=== PATIENT | female | born 1945 | race Caucasian/White ===

== ENCOUNTER 2016-12-02 09:25 | Emergency (ER) | payer OTHER ==
[~2016-12-02] VITALS: Ht 154.9 cm; Wt 51.2 kg
[~2016-12-02 09:25] MED LIST: AMLO10 PO; LEVO50TA4 PO; LISI10TA3 PO
[2016-12-02 09:40] VITALS: BP 143/78; PULSE 85; RESP 16; TEMP 98.1; O2SAT 98
[2016-12-02] MEDS ORDERED: LISI10TA3 PO (09:54)
[2016-12-02] MEDS ORDERED: CURCPOW (09:54)
[2016-12-02] MEDS ORDERED: FLUT1SPR5 EACH NARE (09:54)
[2016-12-02] MEDS ORDERED: MULT1TAB84 PO (09:54)
[2016-12-02] MEDS ORDERED: LEVO50TA4 PO (09:54)
[2016-12-02] MEDS ORDERED: AMLO10 PO (09:54)
[2016-12-02] MEDS ORDERED: BOSW5TAB PO (09:54)
[2016-12-02 10:06] LABS: AUTOMATED NEUTROPHIL # 3.6 TH/MM3 (1.8-7.7); BASOPHIL % 0.7 % (0.0-2.0); EOSINOPHIL % 0.3 % (0.0-4.0); HEMATOCRIT 42.8 % (35.0-46.0); HEMO FLAGS DIFF FINAL; LYMPH % 21.4 % (9.0-44.0); LYMPHOCYTE # 1.2 TH/MM3 (1.0-4.8); MEAN CELL VOLUME 98.7 FL (80.0-100.0); MEAN CORPUSCULAR HEMOGLOBIN 33.5 PG (27.0-34.0); MEAN CORPUSCULAR HGB CONC 33.9 % (32.0-36.0); MONO % 11.1 % (0.0-8.0); NEUT % 66.5 % (16.0-70.0); PLATELET COUNT 190 TH/MM3 (150-450); RED BLOOD COUNT 4.34 MIL/MM3 (4.00-5.30); RED CELL DISTRIBUTION WIDTH 12.1 % (11.6-17.2); WHITE BLOOD COUNT 5.4 TH/MM3 (4.0-11.0)
[2016-12-02 10:13] LABS: CHLORIDE 100 MEQ/L (98-107); POTASSIUM 4.4 MEQ/L (3.5-5.1); SODIUM (NA) 137 MEQ/L (136-145)
[2016-12-02] MEDS ORDERED: ONDANSETRON ODT 4 MG TAB PO ONE (10:15)
[2016-12-02 10:16] LABS: ANION GAP 12 MEQ/L (5-15); BICARBONATE 25.1 MEQ/L (21.0-32.0)
[2016-12-02 10:17] LABS: BLOOD UREA NITROGEN 14 MG/DL (7-18)
[2016-12-02 10:19] LABS: ALT (GPT) 116 U/L (10-53)
[2016-12-02 10:20] LABS: AST (GOT) 161 U/L (15-37); GLOMERULAR FILTRATION RATE 69 ML/MIN (>89)
[2016-12-02 10:22] LABS: ALKALINE PHOSPHATASE 97 U/L (45-117)
--- NOTE | 2016-12-02 10:42 | PD ---
HPI Chief Complaint: Dizziness Time Seen by Provider: 09:46 Travel History International Travel<30 days: No Contact w/Intl Traveler<30days: No Traveled to known affect area: No History of Present Illness HPI Is a 71-year-old woman presents to the emergency department complaining of feeling dizzy nauseous over the past several days. She's been having belly problems since about August. She's had abdominal distention and bloating and belching. She is followed with Dr. spears or GI. The past couple days had more dizziness and nausea. She also had dark stools for the past 2 days. She had vomiting about a week ago, but has resolved now. No history of abdominal surgeries. No other complaints. History Past Medical History Narrative Medical Hypertension Hypothyroidism Arthritis Hepatitis C Tetanus Vaccination: Unknown Menopausal: Yes Social History Alcohol Use: Yes (WINE DAILY) Tobacco Use: No Allergies-Medications (Allergen,Severity, Reaction): Coded Allergies: Macrobid (Verified Allergy, Intermediate, UPSET STOMACH, 12/02/16) Penicillin (Verified Allergy, Intermediate, HIVES, 12/02/16) Reported Meds & Prescriptions Reported Meds & Active Scripts Active Reported Osteo Bi-Flex One A Day (Hnnineudu-Ilwjotspqeq-Llkxsbd) 1 Tab 1 Tab PO DAILY Norvasc (Amlodipine Besylate) 10 Mg Tab 10 Mg PO DAILY Multivitamin Adults (Multiple Vitamins W/ Minerals) 1 Tab 1 Tab PO DAILY Lisinopril 10 Mg Tab 10 Mg PO DAILY Levothyroxine (Levothyroxine Sodium) 50 Mcg Tab 50 Mcg PO DAILY Flonase Allergy Relief Nasal [place] (Fluticasone Nasal [place]) 50 Mcg/Act [place] 50 Mcg EACH NARE BID Curcumin (Turmeric (Curcuma Longa) (Bulk) 1 Pow Pow Unknown Dose Review of Systems Except as stated in HPI: all other systems reviewed are Neg Physical Exam Narrative GENERAL: Well-appearing 70 year-old woman, no acute distress. SKIN: Warm and dry. HEAD: Atraumatic. Normocephalic. CARDIOVASCULAR: Regular rate and rhythm. No murmur appreciated. RESPIRATORY: No accessory muscle use. Clear to auscultation. Breath sounds equal bilaterally. GASTROINTESTINAL: Abdomen soft, non-tender, nondistended. Hepatic and splenic margins not palpable. MUSCULOSKELETAL: No obvious deformities. No edema. RECTAL: Dark brown stool in the rectal vault. Guaiac negative. NEUROLOGICAL: Awake and alert. No obvious cranial nerve deficits. Motor grossly within normal limits. Normal speech. PSYCHIATRIC: Appropriate mood and affect; insight and judgment normal. Data Data Last Documented VS Vital Signs Date Time Temp Pulse Resp B/P Pulse Ox O2 Delivery O2 Flow Rate FiO2 12/02/16 09:47 16 98 Room Air 12/02/16 09:40 98.1 85 143/78 Orders Complete Blood Count With Diff (12/02/16 09:56) Comprehensive Metabolic Panel (12/02/16 09:56) Troponin I (12/02/16 09:56) Iv Access Insert/Monitor (12/02/16 09:56) Electrocardiogram (12/02/16 ) Ondansetron Odt (Zofran Odt) (12/02/16 10:15) Labs Laboratory Tests Test 12/02/16 10:00 White Blood Count 5.4 TH/MM3 Red Blood Count 4.34 MIL/MM3 Hemoglobin 14.5 GM/DL Hematocrit 42.8 % Mean Corpuscular Volume 98.7 FL Mean Corpuscular Hemoglobin 33.5 PG Mean Corpuscular Hemoglobin 33.9 % Concent Red Cell Distribution Width 12.1 % Platelet Count 190 TH/MM3 Mean Platelet Volume 7.7 FL Neutrophils (%) (Auto) 66.5 % Lymphocytes (%) (Auto) 21.4 % Monocytes (%) (Auto) 11.1 % Eosinophils (%) (Auto) 0.3 % Basophils (%) (Auto) 0.7 % Neutrophils # (Auto) 3.6 TH/MM3 Lymphocytes # (Auto) 1.2 TH/MM3 Monocytes # (Auto) 0.6 TH/MM3 Eosinophils # (Auto) 0.0 TH/MM3 Basophils # (Auto) 0.0 TH/MM3 CBC Comment DIFF FINAL Differential Comment Sodium Level 137 MEQ/L Potassium Level 4.4 MEQ/L Chloride Level 100 MEQ/L Carbon Dioxide Level 25.1 MEQ/L Anion Gap 12 MEQ/L Blood Urea Nitrogen 14 MG/DL Creatinine 0.81 MG/DL Estimat Glomerular Filtration 69 ML/MIN Rate Random Glucose 95 MG/DL Calcium Level 9.1 MG/DL Total Bilirubin 1.0 MG/DL Aspartate Amino Transf 161 U/L (AST/SGOT) Alanine Aminotransferase 116 U/L (ALT/SGPT) Alkaline Phosphatase 97 U/L Troponin I LESS THAN 0.02 NG/ML Total Protein 8.3 GM/DL Albumin 4.1 GM/DL [facility] Medical Decision Making Medical Screen Exam Complete: Yes Emergency Medical Condition: Yes Interpretation(s) My review of EKG: Normal sinus rhythm at a rate of 76, leftward axis, normal intervals, no definite evidence of acute ischemia. LABS: CBC unremarkable. CMP remarkable for mildly elevated AST and ALT slightly increased from baseline although elevated in the past. Positive for hepatitis C in the past. Troponin negative. Differential Diagnosis Gastritis, GI upset, appendicitis, diverticulitis, other Narrative Course Medical decision making the 71-year-old woman presents to the emergency department complaining of lightheadedness and nausea and some abdominal bloating ongoing for the past several months. she looks well. labs are unremarkable. ekg is unremarkable. benign abdominal exam. recommend outpatient follow-up. HemaPrompt Point of Care Internal Pos. & Neg. Controls: Passed Fecal Specimen Occult Blood: Negative Diagnosis Primary Impression: Abdominal pain Qualified Code: R10.84 - Generalized abdominal pain Additional Instructions: Follow-up for your CT on Sunday. Follow-up with Dr. Roberts. Return to the emergency department for any new or worsening symptoms. Med/Other Pt SpecificInfo: No Change to Meds Disposition: 01 DISCHARGE HOME Condition: Stable Darnell Garcia MD Dec 02, 2016 10:42
[2016-12-02 10:48] VITALS: BP 123/65
--- NOTE | 2016-12-03 12:50 | EKG ---
Date Performed: 12/02/2016 Time Performed: 10:08:02 PTAGE: 71 years EKG: Sinus rhythm Leftward axis Anterior T wave changes are nonspecific Since previous tracing, no significant change noted Borderline ECG PREVIOUS TRACING : 12/12/2012 09.56 DOCTOR: Eva Brand Interpretating Date/Time 12/03/2016 12:49:51
== END 2016-12-02 10:54 | disposition home or self-care (01) ==
LOC: PHED 09:25
DX: R10.84 Generalized abdominal pain (principal); I10 Essential (primary) hypertension; E03.9 Hypothyroidism, unspecified; B19.20 Unspecified viral hepatitis C without hepatic coma; R94.31 Abnormal electrocardiogram [ECG] [EKG]
CPT/HCPCS: 80053; 84484; 85025; 93005

== ENCOUNTER 2017-03-02 08:55 | Day surgery (SDC) | payer OTHER ==
[2017-03-02] VITALS (8 sets, daily range): BP systolic 115–166; BP diastolic 66–109; PULSE 77–92; RESP 16–20; TEMP 98.1–98.2; O2SAT 92–98
[~2017-03-02] VITALS: Ht 156.2 cm; Wt 51.8 kg
[~2017-03-02 08:55] MED LIST changes: +BOSW5TAB PO; +CURCPOW; +FLUT1SPR5 EACH NARE; +MULT1TAB84 PO
[2017-03-02] MEDS ORDERED: SODIUM CHLOR 0.9% 1000 ML IV SCH (10:00)
[2017-03-02] MEDS ORDERED: MIDAZOLAM HCL 5 MG/5 ML VIAL ONE (10:22)
[2017-03-02] MEDS ORDERED: fentaNYL CITRATE 250 MCG/5 ML AMP ONE (10:22)
[2017-03-02] MEDS ORDERED: LIDOCAINE 1%/EPINEPHrine 1:100,000 SOLN 20 ML VIAL ONE (10:29)
--- NOTE | 2017-03-02 12:47 | RADRPT ---
EXAM DATE/TIME: 03/02/2017 10:38 [facility] COMPARISON: CT ABDOMEN & PELVIS W/O CONTRAST, July 14, 2013, 9:46. INDICATIONS : Hepatitis C. SEDATION TIME: 20 minutes BIOPSY SITE: Right MEDICATION(S): 1.) 3 mg midazolam (Versed) IV 2.) 150 mcg fentanyl (Sublimaze) IV DEVICE(S): 1.) 18 gauge Temno core biopsy needle MEDICAL HISTORY : Hepatitis C. SURGICAL HISTORY : None. ENCOUNTER: Initial ACUITY: 1 day PAIN SCORE: 0/10 LOCATION: Right A total of three core specimen(s) were obtained and sent to the laboratory for pathologic evaluation. PROCEDURE: 1. CT guided liver biopsy. 2. Conscious sedation with continuous EKG and oximetry monitoring. 3. EKG and oximetry remained stable throughout the procedure. Prior to the procedure informed consent was obtained. Any appropriate prior imaging studies were rev iewed. Using automated exposure control and adjustment of the mA and/or kV according to patient size, radiat ion dose was kept as low as reasonably achievable to obtain optimal diagnostic quality images. The site was prepped in a sterile fashion. Full sterile technique was used, including cap, mask, cristy rile gloves and gown and a large sterile sheet. Hand hygiene and 2% chlorhexidine and/or betadine/al cohol prep was utilized per protocol for cutaneous antisepsis. The skin and subcutaneous tissues wer e infiltrated with local anesthetic solution. With CT guidance the liver was localized. Biopsy was performed using the prescribed needle as above. Adequate hemostasis was obtained with compression at the puncture site. Follow-up CT scan reveals no immediate complication. The patient tolerated the procedure well and there were no complications. The patient was returned to the Radiology Outpatient Unit in stable condition. CONCLUSION: Uncomplicated CT guided biopsy of the liver. Nestor Kern MD on March 02, 2017 at 12:45 Board Certified Radiologist. This report was verified electronically.
== END 2017-03-02 14:50 | disposition home or self-care (01) ==
LOC: HRAD 08:55 → HRIP 09:02 → HRAD 14:50
PROVIDERS: ATTEND Physician Assistant Medical
DX: B18.2 Chronic viral hepatitis C (principal); K74.60 Unspecified cirrhosis of liver; I10 Essential (primary) hypertension; Z85.828 Personal history of other malignant neoplasm of skin
CPT/HCPCS: 47000; 77012; 88307; 88313; J2250; J3010; J7030

== ENCOUNTER 2017-03-17 08:12 | Emergency (ER) | payer OTHER ==
[~2017-03-17 08:12] MED LIST changes: -AMLO10 PO; -BOSW5TAB PO; -CURCPOW; -LISI10TA3 PO
[2017-03-17 08:14] VITALS: BP 158/101; PULSE 84; RESP 15; TEMP 98.3; O2SAT 97
--- NOTE | 2017-03-17 08:27 | PD ---
HPI Chief Complaint: Abdominal Pain Time Seen by Provider: 08:19 Travel History International Travel<30 days: No Contact w/Intl Traveler<30days: No Traveled to known affect area: No History of Present Illness HPI 71-year-old female complains of abdominal discomfort and abdominal distention. Patient states that she has recurrent symptoms for the past 6 months. Patient has been seen by GI specialist and had blood tests and CT scan abdomen pelvis without clear etiology. Patient states that she never had endoscopy or colonoscopy done for the problem. Patient denies any headache. Patient denies any chest pain or shortness of breath. Patient denies any abdominal pain. Patient states that she has occasional dyspnea abdominal discomfort but no pain. Patient denies any dysuria or frequency. Patient denies any vaginal discharge or bleeding. Patient denies any fever chills. Patient denies any back pain. Patient has history of elevated LFTs and awaiting liver biopsy. PFSH Past Medical History Hx Anticoagulant Therapy: No Cancer: Yes (skin cancer) Cardiovascular Problems: Yes (htn on meds) High Cholesterol: Yes Diabetes: No Diminished Hearing: No Endocrine: No GERD: Yes Genitourinary: No Hepatitis: Yes (hepatitis c) Hiatal Hernia: No Hypertension: Yes Immune Disorder: No Musculoskeletal: Yes (arthritis) Neurologic: No Psychiatric: No Reproductive: No Respiratory: No Immunizations Current: No Thyroid Disease: Yes ?: Not Menopausal: Yes Tubal Ligation: Yes Past Surgical History AICD: No Joint Replacement: No Pacemaker: No Tonsillectomy: Yes Other Surgery: Yes (BREAST AUG AND REMOVAL) Social History Alcohol Use: Yes (WINE DAILY) Tobacco Use: No Substance Use: No Allergies-Medications (Allergen,Severity, Reaction): Coded Allergies: Macrobid (Verified Allergy, Intermediate, UPSET STOMACH, 03/17/17) Penicillin (Verified Allergy, Intermediate, HIVES, 03/17/17) Reported Meds & Prescriptions Reported Meds & Active Scripts Active Reported Multivitamin Adults (Multiple Vitamins W/ Minerals) 1 Tab 1 Tab PO DAILY Levothyroxine (Levothyroxine Sodium) 50 Mcg Tab 50 Mcg PO DAILY Flonase Nasal [place] (Fluticasone Nasal [place]) 50 Mcg/Act [place] 50 Mcg EACH NARE BID Review of Systems General / Constitutional: No: Fever Eyes: No: Visual changes HENT: No: Headaches Cardiovascular: No: Chest Pain or Discomfort Respiratory: No: Shortness of Breath Gastrointestinal: No: Abdominal Pain Genitourinary: No: Dysuria Musculoskeletal: No: Pain Skin: No Rash Neurologic: No: Weakness Psychiatric: No: Depression Endocrine: No: Polydipsia Hematologic/Lymphatic: No: Easy Bruising Physical Exam Narrative GENERAL: Well-nourished, well-developed patient. SKIN: Focused skin assessment warm/dry. HEAD: Normocephalic. EYES: No scleral icterus. No injection or drainage. NECK: Supple, trachea midline. No JVD or lymphadenopathy. CARDIOVASCULAR: Regular rate and rhythm without murmurs, gallops, or rubs. RESPIRATORY: Breath sounds equal bilaterally. No accessory muscle use. GASTROINTESTINAL: Abdomen soft, non-tender, nondistended. MUSCULOSKELETAL: No cyanosis, or edema. BACK: Nontender without obvious deformity. No CVA tenderness. Neurologic exam normal. Data Data Last Documented VS Vital Signs Date Time Temp Pulse Resp B/P Pulse Ox O2 Delivery O2 Flow Rate FiO2 03/17/17 09:46 80 18 177/100 98 Room Air 03/17/17 08:14 98.3 Orders Complete Blood Count With Diff (03/17/17 08:24) Comprehensive Metabolic Panel (03/17/17 08:24) Lipase (03/17/17 08:24) Prothrombin Time / Inr (Pt) (03/17/17 08:24) Act Partial Throm Time (Ptt) (03/17/17 08:24) Urinalysis - C+S If Indicated (03/17/17 08:24) Ct Abd/Pel W Iv Contrast(Rout) (03/17/17 08:24) Iv Access Insert/Monitor (03/17/17 08:24) Ecg Monitoring (03/17/17 08:24) Oximetry (03/17/17 08:24) Iohexol 350 Inj (Omnipaque 350 Inj) (03/17/17 09:30) Labs Laboratory Tests Test 03/17/17 03/17/17 08:25 08:35 Urine Collection Type CLEAN CATCH Urine Color YELLOW Urine Turbidity CLEAR Urine pH 6.0 Urine Specific [place] 1.022 Urine Protein TRACE mg/dL Urine Glucose (UA) NEG mg/dL Urine Ketones TRACE mg/dL Urine Occult Blood NEG Urine Nitrite NEG Urine Bilirubin NEG Urine Leukocyte Esterase NEG Urine Squamous Epithelial 0-5 /hpf Cells Urine Amorphous Sediment FEW Urine Hyaline Casts 3-5 /lpf Microscopic Urinalysis Comment CULT NOT INDICATED Urine Collection Time 0830 White Blood Count 4.3 TH/MM3 Red Blood Count 4.29 MIL/MM3 Hemoglobin 14.7 GM/DL Hematocrit 42.8 % Mean Corpuscular Volume 99.7 FL Mean Corpuscular Hemoglobin 34.3 PG Mean Corpuscular Hemoglobin 34.4 % Concent Red Cell Distribution Width 12.5 % Platelet Count 134 TH/MM3 Mean Platelet Volume 7.7 FL Neutrophils (%) (Auto) 61.5 % Lymphocytes (%) (Auto) 23.7 % Monocytes (%) (Auto) 12.7 % Eosinophils (%) (Auto) 0.6 % Basophils (%) (Auto) 1.5 % Neutrophils # (Auto) 2.6 TH/MM3 Lymphocytes # (Auto) 1.0 TH/MM3 Monocytes # (Auto) 0.6 TH/MM3 Eosinophils # (Auto) 0.0 TH/MM3 Basophils # (Auto) 0.1 TH/MM3 CBC Comment DIFF FINAL Differential Comment Prothrombin Time 10.9 SEC Prothromb Time International 1.0 RATIO Ratio Activated Partial 26.4 SEC Thromboplast Time Sodium Level 136 MEQ/L Potassium Level 3.5 MEQ/L Chloride Level 99 MEQ/L Carbon Dioxide Level 26.2 MEQ/L Anion Gap 11 MEQ/L Blood Urea Nitrogen 12 MG/DL Creatinine 0.63 MG/DL Estimat Glomerular Filtration 93 ML/MIN Rate Random Glucose 102 MG/DL Calcium Level 9.6 MG/DL Total Bilirubin 0.8 MG/DL Aspartate Amino Transf 242 U/L (AST/SGOT) Alanine Aminotransferase 161 U/L (ALT/SGPT) Alkaline Phosphatase 112 U/L Total Protein 8.8 GM/DL Albumin 4.1 GM/DL Lipase 238 U/L [facility] Medical Decision Making Medical Screen Exam Complete: Yes Emergency Medical Condition: Yes Interpretation(s) 9:24 AM. CBC within normal limit. CMP with AST 242. ALT 161. UA is negative. Differential Diagnosis Differential diagnosis including gastritis, PUD, pancreatitis, cholecystitis, colitis, UTI, pyelonephritis, nephrolithiasis, appendicitis. Narrative Course 71-year-old female with persistent abdominal distention and abdominal discomfort. Diagnosis Primary Impression: Abdominal colic Additional Impression: Elevated LFTs Patient Instructions: General Instructions Additional Instructions: Follow-up with personal physician. Return if worse. Med/Other Pt SpecificInfo: No Change to Meds Disposition: 01 DISCHARGE HOME Condition: Stable Eliot Anne MD March 17, 2017 08:27
[2017-03-17 08:36] VITALS: BP 182/22; PULSE 80; RESP 18; O2SAT 98
[2017-03-17 08:40] LABS: BLOOD, URINE NEG (NEG); GLUCOSE,URINE NEG (NEG); KETONE, URINE TRACE mg/dL (NEG); NITRITE,URINE NEG (NEG)
[2017-03-17 08:45] LABS: METHOD OF COLLECTION CLEAN CATCH; URINE COLOR YELLOW (YELLW/STRAW)
[2017-03-17 08:46] LABS: COMMENT (UR) CULT NOT INDICATED; COMMENT2 (UR) MUCOUS PRESENT; CULTURE IF INDICATED CULT NOT INDICATED; SQUAMOUS EPITHELIAL CELL URINE 0-5 /hpf (0-5)
[2017-03-17 08:53] LABS: CHLORIDE 99 MEQ/L (98-107); POTASSIUM 3.5 MEQ/L (3.5-5.1); SODIUM (NA) 136 MEQ/L (136-145)
[2017-03-17 08:56] LABS: AUTOMATED NEUTROPHIL # 2.6 TH/MM3 (1.8-7.7); BASOPHIL # 0.1 TH/MM3 (0-0.2); BASOPHIL % 1.5 % (0.0-2.0); EOSINOPHIL % 0.6 % (0.0-4.0); HEMATOCRIT 42.8 % (35.0-46.0); HEMO FLAGS DIFF FINAL; LYMPH % 23.7 % (9.0-44.0); MEAN CELL VOLUME 99.7 FL (80.0-100.0); MEAN CORPUSCULAR HEMOGLOBIN 34.3 PG (27.0-34.0); MEAN CORPUSCULAR HGB CONC 34.4 % (32.0-36.0); MONO % 12.7 % (0.0-8.0); NEUT % 61.5 % (16.0-70.0); PLATELET COUNT 134 TH/MM3 (150-450); RED BLOOD COUNT 4.29 MIL/MM3 (4.00-5.30); RED CELL DISTRIBUTION WIDTH 12.5 % (11.6-17.2); WHITE BLOOD COUNT 4.3 TH/MM3 (4.0-11.0)
[2017-03-17 08:57] LABS: ANION GAP 11 MEQ/L (5-15); BICARBONATE 26.2 MEQ/L (21.0-32.0); BLOOD UREA NITROGEN 12 MG/DL (7-18)
[2017-03-17 08:58] LABS: APTT (PATIENT) 26.4 SEC (24.3-30.1); PROTHROMBIN TIME - PATIENT 10.9 SEC (9.8-11.6)
[2017-03-17 08:59] LABS: ALT (GPT) 161 U/L (10-53)
[2017-03-17 09:00] LABS: AST (GOT) 242 U/L (15-37); GLOMERULAR FILTRATION RATE 93 ML/MIN (>89)
[2017-03-17 09:01] LABS: TOTAL BILIRUBIN ADULT 0.8 MG/DL (0.2-1.0)
[2017-03-17 09:02] LABS: ALKALINE PHOSPHATASE 112 U/L (45-117)
[2017-03-17] MEDS ORDERED: IOHEXOL 350 MG/ML 10 ML VIAL (for RAD DIAG) IV ONE (09:30)
[2017-03-17 09:46] VITALS: BP 177/100; PULSE 80; RESP 18; O2SAT 98
--- NOTE | 2017-03-17 10:36 | RADHPO ---
EXAM DATE/TIME: 03/17/2017 09:09 [facility] COMPARISON: No previous studies available for comparison. INDICATIONS : Abdominal discomfort and distention. IV CONTRAST: 90 cc Omnipaque 350 (iohexol) IV ORAL CONTRAST: No oral contrast ingested. RADIATION DOSE: 5.52 CTDIvol (mGy) MEDICAL HISTORY : Hypertension. Hepatitis C. SURGICAL HISTORY : Tubal ligation. ENCOUNTER: Initial ACUITY: 1 day PAIN SCALE: 2/10 LOCATION: Right lower quadrant TECHNIQUE: Volumetric scanning of the abdomen and pelvis was performed. Using automated exposure control and ad justment of the mA and/or kV according to patient size, radiation dose was kept as low as reasonably achievable to obtain optimal diagnostic quality images. FINDINGS: LOWER LUNGS: The visualized lower lungs are clear. LIVER: Diffuse hypodensity of the liver indicating hepatic steatosis. No focal mass identified. Gallbladder within normal limits. SPLEEN: Normal size without lesion. PANCREAS: Within normal limits. KIDNEYS: Normal in size and shape. There is no mass, stone or hydronephrosis. ADRENAL GLANDS: Within normal limits. VASCULAR: Tortuous and calcified aorta. Aortic diameter are within normal limits. BOWEL/MESENTERY: No evidence of bowel dilatation. No free air or free fluid. Appendix not identified. ABDOMINAL WALL: Within normal limits. RETROPERITONEUM: There is no lymphadenopathy. BLADDER: No wall thickening or mass. REPRODUCTIVE: Within normal limits. INGUINAL: There is no lymphadenopathy or hernia. MUSCULOSKELETAL: Prominent degenerative findings of the lumbar spine. CONCLUSION: Hepatic steatosis. Degenerative findings of the lumbar spine. No acute findings in the abdomen and pelvis. Zeb Jimenez MD on March 17, 2017 at 10:27 Board Certified Radiologist. This report was verified electronically.
== END 2017-03-17 10:54 | disposition home or self-care (01) ==
LOC: PHED 08:12
DX: R10.84 Generalized abdominal pain (principal); R79.89 Other specified abnormal findings of blood chemistry; I10 Essential (primary) hypertension; B19.20 Unspecified viral hepatitis C without hepatic coma; E78.00 Pure hypercholesterolemia, unspecified
CPT/HCPCS: 74177; 80053; 81001; 83690; 85025; 85610; 85730; 99284; Q9967

== ENCOUNTER 2017-03-30 08:11 | Emergency (ER) | payer OTHER ==
[~2017-03-30] VITALS: Ht 156.2 cm; Wt 56.0 kg
[2017-03-30 08:18] VITALS: BP 166/98; PULSE 86; RESP 16; TEMP 97.8; O2SAT 97
[2017-03-30] MEDS ORDERED: SODIUM CHLOR 0.9% 1000 ML INJ 1,000 ML IV ONE (08:25)
[2017-03-30] MEDS ORDERED: MULTTAB67 PO (08:26)
[2017-03-30] MEDS ORDERED: SODIUM CHLORIDE 0.9% FLUSH 10 ML FLUSH IVF PRN (08:30)
[2017-03-30] MEDS ORDERED: ONDANSETRON HCL 4 MG/2 ML VIAL IVP ONE (08:30)
[2017-03-30] MEDS ORDERED: MECLIZINE HCL 25 MG TAB PO ONE (08:30)
[2017-03-30 08:35] VITALS: RESP 16; O2SAT 97
[2017-03-30 08:40] LABS: AUTOMATED NEUTROPHIL # 1.7 TH/MM3 (1.8-7.7); BASOPHIL # 0.1 TH/MM3 (0-0.2); BASOPHIL % 1.4 % (0.0-2.0); EOSINOPHIL # 0.1 TH/MM3 (0-0.4); EOSINOPHIL % 1.8 % (0.0-4.0); HEMATOCRIT 47.5 % (35.0-46.0); HEMO FLAGS DIFF FINAL; LYMPH % 39.2 % (9.0-44.0); LYMPHOCYTE # 1.6 TH/MM3 (1.0-4.8); MEAN CELL VOLUME 101.2 FL (80.0-100.0); MEAN CORPUSCULAR HEMOGLOBIN 33.5 PG (27.0-34.0); MEAN CORPUSCULAR HGB CONC 33.1 % (32.0-36.0); MONO % 14.6 % (0.0-8.0); PLATELET COUNT 120 TH/MM3 (150-450); RED CELL DISTRIBUTION WIDTH 13.2 % (11.6-17.2); WHITE BLOOD COUNT 4.1 TH/MM3 (4.0-11.0)
[2017-03-30 08:49] LABS: CHLORIDE 103 MEQ/L (98-107); POTASSIUM 4.2 MEQ/L (3.5-5.1); SODIUM (NA) 139 MEQ/L (136-145)
[2017-03-30 08:52] LABS: APTT (PATIENT) 25.6 SEC (24.3-30.1); PROTHROMBIN TIME - PATIENT 10.8 SEC (9.8-11.6)
[2017-03-30 08:53] LABS: ANION GAP 10 MEQ/L (5-15); BICARBONATE 26.5 MEQ/L (21.0-32.0); BLOOD UREA NITROGEN 9 MG/DL (7-18)
[2017-03-30 08:56] LABS: ALT (GPT) 174 U/L (10-53); AST (GOT) 294 U/L (15-37); GLOMERULAR FILTRATION RATE 70 ML/MIN (>89)
[2017-03-30 08:57] LABS: TOTAL BILIRUBIN ADULT 0.8 MG/DL (0.2-1.0)
[2017-03-30 08:58] LABS: ALKALINE PHOSPHATASE 115 U/L (45-117); CREATINE KINASE 353 U/L (26-192)
--- NOTE | 2017-03-30 08:58 | RADHPO ---
EXAM DATE/TIME: 03/30/2017 08:38 [facility] COMPARISON: No previous studies available for comparison. INDICATIONS : Dizziness with visual disturbances. RADIATION DOSE: 59.60 CTDIvol (mGy) MEDICAL HISTORY : Hypertension. SURGICAL HISTORY : None. ENCOUNTER: Initial ACUITY: 1 day PAIN SCALE: 0/10 LOCATION: cranial TECHNIQUE: Multiple contiguous axial images were obtained of the head. Using automated exposure control and adjustment of the mA and/or kV according to patient size, radiation dose was kept as low as reasonably achievable to obtain optimal diagnostic quality images. FINDINGS: CEREBRUM: The ventricles are normal for age. No evidence of midline shift, mass lesion, hemorrha ge or acute infarction. No extra-axial fluid collections are seen. POSTERIOR FOSSA: The cerebellum and brainstem are intact. The 4th ventricle is midline. The cer ebellopontine angle is unremarkable. EXTRACRANIAL: The visualized portion of the orbits is intact. SKULL: The calvaria is intact. No evidence of skull fracture. CONCLUSION: Negative for acute process. Robson Sethi MD FACR on March 30, 2017 at 8:56 Board Certified Radiologist. This report was verified electronically.
--- NOTE | 2017-03-30 09:02 | RADHPO ---
EXAM DATE/TIME: 03/30/2017 08:41 [facility] COMPARISON: No previous studies available for comparison. INDICATIONS : Dizziness, nausea, blurred vision. MEDICAL HISTORY : None. SURGICAL HISTORY : None. ENCOUNTER: Initial ACUITY: 2 days PAIN SCORE: 0/10 LOCATION: Bilateral chest FINDINGS: PA and lateral views of the chest demonstrate the lungs to be symmetrically aerated without evidence of mass, infiltrate or effusion. The cardiomediastinal contours are unremarkable. Old rib fractures on the right. CONCLUSION: Negative for an acute process. Robson Sethi MD FACR on March 30, 2017 at 8:56 Board Certified Radiologist. This report was verified electronically.
[2017-03-30 09:11] VITALS: BP 146/88; PULSE 64; RESP 16; O2SAT 97
[2017-03-30 09:14] LABS: CKMB 3.5 NG/ML (0.5-3.6)
[2017-03-30 09:42] LABS: BLOOD, URINE NEG (NEG); GLUCOSE,URINE NEG (NEG); KETONE, URINE TRACE mg/dL (NEG); NITRITE,URINE NEG (NEG); PH, URINE 6.5 (5.0-8.5)
[2017-03-30 09:49] LABS: METHOD OF COLLECTION CLEAN CATCH; SQUAMOUS EPITHELIAL CELL URINE 0-5 /hpf (0-5); URINE COLOR YELLOW (YELLW/STRAW); WBC, URINE 0-2 /hpf (0-5)
[2017-03-30 09:50] LABS: COMMENT (UR) CULT NOT INDICATED; CULTURE IF INDICATED CULT NOT INDICATED
--- NOTE | 2017-03-30 10:15 | PD ---
HPI Chief Complaint: Dizziness Time Seen by Provider: 08:19 Travel History International Travel<30 days: No Contact w/Intl Traveler<30days: No Traveled to known affect area: No History of Present Illness HPI Patient is a 71 year old female who comes in complaining of dizziness and blurred vision. She says it started yesterday, but she waited to see if it would improve before coming in. She says the blurred vision is improving, but she still has dizziness. She says it is a lightheaded feeling. She denies any headache, chest pain, SOB. She admits to drinking daily. She says her last drink was yesterday afternoon. She denies any fever or chills. She has had some nausea, but no vomiting. She denies abdominal pain. PFSH Past Medical History Hx Anticoagulant Therapy: No Cancer: Yes (skin cancer) Cardiovascular Problems: Yes (HTN) High Cholesterol: Yes Diabetes: No Diminished Hearing: No Endocrine: No Gastrointestinal Disorders: No GERD: Yes Genitourinary: No Hepatitis: Yes (hepatitis c) Hiatal Hernia: No Hypertension: Yes Immune Disorder: No Medical other: No Musculoskeletal: Yes (arthritis) Neurologic: No Psychiatric: No Reproductive: No Respiratory: No Immunizations Current: No Thyroid Disease: Yes Tetanus Vaccination: Unknown ?: Not Menopausal: Yes Tubal Ligation: Yes Past Surgical History AICD: No Joint Replacement: No Pacemaker: No Tonsillectomy: Yes Other Surgery: Yes (BREAST AUG AND REMOVAL) Social History Alcohol Use: Yes (WINE DAILY) Tobacco Use: No Substance Use: No Allergies-Medications (Allergen,Severity, Reaction): Coded Allergies: Macrobid (Verified Allergy, Intermediate, UPSET STOMACH, 03/30/17) Penicillin (Verified Allergy, Intermediate, HIVES, 03/30/17) Reported Meds & Prescriptions Reported Meds & Active Scripts Active Reported Multiple Vitamin 1 Tab 1 Tab PO DAILY Levothyroxine (Levothyroxine Sodium) 50 Mcg Tab 50 Mcg PO DAILY Flonase Nasal [place] (Fluticasone Nasal [place]) 50 Mcg/Act [place] 50 Mcg EACH NARE BID Review of Systems Except as stated in HPI: all other systems reviewed are Neg General / Constitutional: No: Fever, Chills Eyes: Positive: Blurred Vision HENT: Positive: Lightheadedness, No: Headaches Cardiovascular: No: Chest Pain or Discomfort Respiratory: No: Shortness of Breath Gastrointestinal: Positive: Nausea, No: Vomiting, Abdominal Pain Genitourinary: No: Dysuria Musculoskeletal: No: Myalgias, Weakness, Edema Skin: No Rash, No Change in Pigmentation Neurologic: No: Weakness, Dizziness Physical Exam Narrative GENERAL: Awake and alert, in no acute distress. SKIN: Focused skin assessment warm/dry. HEAD: Atraumatic. Normocephalic. EYES: Pupils equal and round. No scleral icterus. Extraocular movements intact. No nystagmus. ENT: Mucous membranes pink and moist. NECK: Trachea midline. No JVD. CARDIOVASCULAR: Regular rate and rhythm. No murmur appreciated. RESPIRATORY: No accessory muscle use. Clear to auscultation. Breath sounds equal bilaterally. GASTROINTESTINAL: Abdomen soft, non-tender, nondistended. MUSCULOSKELETAL: No obvious deformities. No clubbing. No cyanosis. No edema. NEUROLOGICAL: Awake and alert. No obvious cranial nerve deficits. Motor grossly within normal limits. Normal speech. Normal cerebellar function testing. PSYCHIATRIC: Appropriate mood and affect; insight and judgment normal. Data Data Last Documented VS Vital Signs Date Time Temp Pulse Resp B/P Pulse Ox O2 Delivery O2 Flow Rate FiO2 03/30/17 09:11 64 16 146/88 97 Room Air 03/30/17 08:18 97.8 Orders Electrocardiogram (03/30/17 08:25) Complete Blood Count With Diff (03/30/17 08:25) Comprehensive Metabolic Panel (03/30/17 08:25) Ckmb (Isoenzyme) Profile (03/30/17 08:25) Troponin I (03/30/17 08:25) Act Partial Throm Time (Ptt) (03/30/17 08:25) Prothrombin Time / Inr (Pt) (03/30/17 08:25) Urinalysis - C+S If Indicated (03/30/17 08:25) Ua Includes Microscopic (03/30/17 08:25) Chest, Pa & Lat (03/30/17 08:25) Ct Brain W/O Iv Contrast(Rout) (03/30/17 08:25) Ecg Monitoring (03/30/17 08:25) Iv Access Insert/Monitor (03/30/17 08:25) Oximetry (03/30/17 08:25) Meclizine (Antivert) (03/30/17 08:30) Ondansetron Inj (Zofran Inj) (03/30/17 08:30) Sodium Chloride 0.9% Flush (Ns Flush) (03/30/17 08:30) Sodium Chlor 0.9% 1000 Ml Inj (Ns 1000 M (03/30/17 08:25) Alcohol (Ethanol) (03/30/17 08:25) CKMB (03/30/17 08:25) CKMB% (03/30/17 08:25) Labs Laboratory Tests Test 03/30/17 03/30/17 08:25 09:37 White Blood Count 4.1 TH/MM3 Red Blood Count 4.70 MIL/MM3 Hemoglobin 15.7 GM/DL Hematocrit 47.5 % Mean Corpuscular Volume 101.2 FL Mean Corpuscular Hemoglobin 33.5 PG Mean Corpuscular Hemoglobin 33.1 % Concent Red Cell Distribution Width 13.2 % Platelet Count 120 TH/MM3 Mean Platelet Volume 9.2 FL Neutrophils (%) (Auto) 43.0 % Lymphocytes (%) (Auto) 39.2 % Monocytes (%) (Auto) 14.6 % Eosinophils (%) (Auto) 1.8 % Basophils (%) (Auto) 1.4 % Neutrophils # (Auto) 1.7 TH/MM3 Lymphocytes # (Auto) 1.6 TH/MM3 Monocytes # (Auto) 0.6 TH/MM3 Eosinophils # (Auto) 0.1 TH/MM3 Basophils # (Auto) 0.1 TH/MM3 CBC Comment DIFF FINAL Differential Comment Prothrombin Time 10.8 SEC Prothromb Time International 1.0 RATIO Ratio Activated Partial 25.6 SEC Thromboplast Time Sodium Level 139 MEQ/L Potassium Level 4.2 MEQ/L Chloride Level 103 MEQ/L Carbon Dioxide Level 26.5 MEQ/L Anion Gap 10 MEQ/L Blood Urea Nitrogen 9 MG/DL Creatinine 0.80 MG/DL Estimat Glomerular Filtration 70 ML/MIN Rate Random Glucose 106 MG/DL Calcium Level 9.1 MG/DL Total Bilirubin 0.8 MG/DL Aspartate Amino Transf 294 U/L (AST/SGOT) Alanine Aminotransferase 174 U/L (ALT/SGPT) Alkaline Phosphatase 115 U/L Total Creatine Kinase 353 U/L Creatine Kinase MB 3.5 NG/ML Creatine Kinase MB % 1.0 % Troponin I LESS THAN 0.02 NG/ML Total Protein 8.9 GM/DL Albumin 4.3 GM/DL Ethyl Alcohol Level 163 MG/DL Urine Collection Type CLEAN CATCH Urine Color YELLOW Urine Turbidity CLEAR Urine pH 6.5 Urine Specific [place] 1.013 Urine Protein NEG mg/dL Urine Glucose (UA) NEG mg/dL Urine Ketones TRACE mg/dL Urine Occult Blood NEG Urine Nitrite NEG Urine Bilirubin NEG Urine Leukocyte Esterase NEG Urine WBC 0-2 /hpf Urine Squamous Epithelial 0-5 /hpf Cells Urine Hyaline Casts 25-49 /lpf Microscopic Urinalysis Comment CULT NOT INDICATED Urine Collection Time 09:37 [facility] Medical Decision Making Medical Screen Exam Complete: Yes Emergency Medical Condition: Yes Medical Record Reviewed: Yes Interpretation(s) ECG shows normal sinus rhythm, no ST elevation or depression, frequent PACs. Differential Diagnosis Alcohol intoxication versus dehydration versus ACS (unlikely) versus electrolyte abnormality versus infection Narrative Course Patient is a 71-year-old female comes in complaining of dizziness and blurred vision. Exam shows no neurologic abnormalities. Visual acuity shows vision is 20/50 in the left eye, 20/70 in the right eye and 20/70 bilaterally. Patient says she saw the eye doctor a couple of days ago and has new glasses ordered for her. IV established, labs sent. Labs show an alcohol level of 163. AST and ALT are elevated, similar compared to her previous visit. Patient advised of these results and advised she needs to quit drinking. Given IV fluids, meclizine, Zofran. She reports feeling better. Patient observed in the ED until she is sober. Discharged home to follow-up with her doctor. Advised to increase her fluid intake. Advised to return to the ED as needed for any worsening symptoms. Diagnosis Primary Impression: Dizziness Additional Impressions: Alcohol intoxication Qualified Code: F10.920 - Alcohol intoxication, uncomplicated Dehydration Patient Instructions: Abuse of Alcohol (ED), Dizziness (ED), General Instructions Additional Instructions: Cut back on your alcohol intake. Stay hydrated. Follow up with your doctor. Return to the ED as needed for any worsening symptoms. Disposition: 01 DISCHARGE HOME Condition: Stable Halle Romeo MD Mar 30, 2017 10:15
--- NOTE | 2017-03-31 14:44 | EKG ---
Date Performed: 03/30/2017 Time Performed: 08:24:54 PTAGE: 71 years EKG: Sinus rhythm with PAC(s) Compared to previous tracing, the axis is slightly less leftward, PACs are new. Borderli ne ECG PREVIOUS TRACING : 12/02/2016 10.08 DOCTOR: Chandra Spain Interpretating Date/Time 03/31/2017 14:43:14
== END 2017-03-30 11:10 | disposition home or self-care (01) ==
LOC: PHED 08:11
DX: R42 Dizziness and giddiness (principal); F10.920 Alcohol use, unspecified with intoxication, uncomplicated; E86.0 Dehydration; H53.8 Other visual disturbances; R11.0 Nausea; R94.31 Abnormal electrocardiogram [ECG] [EKG]; I10 Essential (primary) hypertension; E07.9 Disorder of thyroid, unspecified; E78.00 Pure hypercholesterolemia, unspecified; Z86.79 Personal history of other diseases of the circulatory system; Z87.19 Personal history of other diseases of the digestive system; Z86.19 Personal history of other infectious and parasitic diseases; Z87.39 Personal history of other diseases of the musculoskeletal system and connective tissue
CPT/HCPCS: 70450; 71020; 80053; 80307; 81001; 82550; 82552; 84484; 85025; 85610; 85730; 93005; 96361; 96374; 99285; J2405; J7030

== ENCOUNTER 2017-04-04 09:02 | Emergency (ER) | payer OTHER ==
[~2017-04-04] VITALS: Ht 154.9 cm; Wt 51.0 kg
[~2017-04-04 09:02] MED LIST changes: -MULT1TAB84 PO; +MULTTAB67 PO
[2017-04-04 09:05] VITALS: BP 158/99; PULSE 102; RESP 14; TEMP 98.2; O2SAT 96
== END 2017-04-04 09:11 | disposition left against medical advice (07) ==
LOC: PHEFT 09:02
DX: H93.8X3 Other specified disorders of ear, bilateral (principal)
CPT/HCPCS: 99281

== ENCOUNTER 2017-04-08 08:17 | Emergency (ER) | payer OTHER ==
[~2017-04-08] VITALS: Ht 154.9 cm; Wt 50.0 kg
[2017-04-08 08:21] VITALS: BP 131/89; PULSE 93; RESP 16; TEMP 98.2; O2SAT 97
--- NOTE | 2017-04-08 09:00 | PD ---
HPI Chief Complaint: GI Complaint Time Seen by Provider: 08:43 Travel History International Travel<30 days: No Contact w/Intl Traveler<30days: No Traveled to known affect area: No History of Present Illness HPI The patient was seen and examined in the presence of the nurse. This patient complains of her ears feeling plugged. She has diminished hearing. No ear pain. Severity is mild PFSH Past Medical History Hx Anticoagulant Therapy: No Cancer: Yes (skin cancer) Cardiovascular Problems: Yes (HTN) High Cholesterol: Yes Diabetes: No Diminished Hearing: No Endocrine: No Gastrointestinal Disorders: No GERD: Yes Genitourinary: No Hepatitis: Yes (hepatitis c) Hiatal Hernia: No Hypertension: Yes Immune Disorder: No Medical other: No Musculoskeletal: Yes (arthritis) Neurologic: No Psychiatric: No Reproductive: No Respiratory: No Immunizations Current: No Thyroid Disease: Yes Menopausal: Yes Tubal Ligation: Yes Past Surgical History AICD: No Joint Replacement: No Pacemaker: No Tonsillectomy: Yes Other Surgery: Yes (BREAST AUG AND REMOVAL) Social History Alcohol Use: Yes (WINE DAILY) Tobacco Use: No Substance Use: No Allergies-Medications (Allergen,Severity, Reaction): Coded Allergies: Macrobid (Verified Allergy, Intermediate, UPSET STOMACH, 04/08/17) Penicillin (Verified Allergy, Intermediate, HIVES, 04/08/17) Reported Meds & Prescriptions Reported Meds & Active Scripts Active Reported Multiple Vitamin 1 Tab 1 Tab PO DAILY Levothyroxine (Levothyroxine Sodium) 50 Mcg Tab 50 Mcg PO DAILY Flonase Nasal [place] (Fluticasone Nasal [place]) 50 Mcg/Act [place] 50 Mcg EACH NARE BID Review of Systems General / Constitutional: No: Fever HENT: No: Headaches Cardiovascular: No: Chest Pain or Discomfort Physical Exam Narrative NECK: Symmetrical appearance, midline trachea. No mass or crepitus. Thyroid without enlargement, tenderness, or mass. SKIN: Focused skin assessment reveals no rash or ulcers. Skin is warm and dry. Palpation shows no induration or nodules. Throat clear GASTROINTESTINAL: Abdomen soft, non-tender, nondistended. Positive bowel sounds. No hepato-splenomegaly, or palpable masses. No guarding. TMs are bilateral nonvisible due to cerumen impaction Data Data Last Documented VS Vital Signs Date Time Temp Pulse Resp B/P Pulse Ox O2 Delivery O2 Flow Rate FiO2 04/08/17 08:21 98.2 93 16 131/89 97 [facility] Medical Decision Making Medical Screen Exam Complete: Yes Emergency Medical Condition: Yes Medical Record Reviewed: Yes Differential Diagnosis Cerumen impaction, otitis externa, pharyngitis Narrative Course I have reviewed the patient's electronic medical record. Patient was here a week ago complaining of dizziness and was intoxicated Patient had bilateral ear flushing with good results Diagnosis Primary Impression: Impacted cerumen of both ears Additional Instructions: The patient was advised to follow up with their physician and return if they worsen. Med/Other Pt SpecificInfo: Other Disposition: 01 DISCHARGE HOME Condition: Stable Nelson Lux MD Apr 08, 2017 09:00
== END 2017-04-08 09:32 | disposition home or self-care (01) ==
LOC: PHED 08:17
DX: H61.23 Impacted cerumen, bilateral (principal); I10 Essential (primary) hypertension; E78.00 Pure hypercholesterolemia, unspecified; K21.9 Gastro-esophageal reflux disease without esophagitis; B19.20 Unspecified viral hepatitis C without hepatic coma
CPT/HCPCS: 99283

== ENCOUNTER 2017-04-13 08:07 | Emergency (ER) | payer OTHER ==
[~2017-04-13] VITALS: Ht 154.9 cm; Wt 49.5 kg
[2017-04-13 08:13] VITALS: BP 133/79; PULSE 81; RESP 16; TEMP 98.1; O2SAT 96
--- NOTE | 2017-04-13 08:31 | PD ---
HPI . Lightheadedness Chief Complaint: Dizziness Time Seen by Provider: 08:18 Travel History International Travel<30 days: No Contact w/Intl Traveler<30days: No Traveled to known affect area: No History of Present Illness HPI The patient presents with a chief complaint of lightheadedness and they stopped off left ear. The patient reports she was seen here a few weeks ago for same. She states her ears were flushed and she felt better. She reports that she has subsequently followed up with a neurologist and has had an MRI of her brain which was negative for acute process. She states that she awakened today with the sensation of a clog left ear and dizziness. She does not describe vertigo. She denies any pain. In addition to the lightheadedness, the patient reports poor vision. The patient has not noted any modifying factors. Her symptoms are mild. PFSH Past Medical History Hx Anticoagulant Therapy: No Arthritis: Yes Cancer: Yes (skin cancer) Cardiovascular Problems: Yes (htn on meds) High Cholesterol: Yes Diabetes: No Diminished Hearing: No Endocrine: No Gastrointestinal Disorders: No GERD: Yes Genitourinary: No Hepatitis: Yes (hepatitis c) Hiatal Hernia: No Hypertension: Yes Immune Disorder: No Musculoskeletal: Yes (arthritis) Neurologic: No Psychiatric: No Reproductive: No Respiratory: No Immunizations Current: No Thyroid Disease: Yes ?: Not Menopausal: Yes Tubal Ligation: Yes Past Surgical History AICD: No Joint Replacement: No Pacemaker: No Tonsillectomy: Yes Other Surgery: Yes (BREAST AUG AND REMOVAL) Social History Alcohol Use: Yes (WINE DAILY) Tobacco Use: No Substance Use: No Allergies-Medications (Allergen,Severity, Reaction): Coded Allergies: Macrobid (Verified Allergy, Intermediate, UPSET STOMACH, 04/13/17) Penicillin (Verified Allergy, Intermediate, HIVES, 04/13/17) Reported Meds & Prescriptions Reported Meds & Active Scripts Active Reported Multiple Vitamin 1 Tab 1 Tab PO DAILY Levothyroxine (Levothyroxine Sodium) 50 Mcg Tab 50 Mcg PO DAILY Flonase Nasal [place] (Fluticasone Nasal [place]) 50 Mcg/Act [place] 50 Mcg EACH NARE BID Review of Systems Except as stated in HPI: all other systems reviewed are Neg Eyes: Positive: Blurred Vision, No: Diploplia HENT: Positive: Lightheadedness, No: Headaches, Vertigo Cardiovascular: No: Chest Pain or Discomfort Respiratory: No: Shortness of Breath Gastrointestinal: No: Nausea, Vomiting Neurologic: Positive: Dizziness, No: Weakness, Syncope, Focal Abnormalities, Coordination Problem, Tremor, Ataxia, Headache, Change in Mentation, Slurred Speech, Incontinence, Seizures Physical Exam Narrative GENERAL: Awake and alert and in no acute distress. SKIN: Warm and dry. HEAD: Atraumatic. Normocephalic. EYES: Pupils equal and round. Extraocular movements are intact. ENT: The patient has some cerumen in her left EAC that it is not impacted. The right EAC is clear and the right tympanic membrane is normal appearing. NECK: Trachea midline. Neck is supple. CARDIOVASCULAR: Regular rate and rhythm. RESPIRATORY: No accessory muscle use. MUSCULOSKELETAL: No obvious deformities. No edema. NEUROLOGICAL: Awake and alert. No obvious cranial nerve deficits. Motor grossly within normal limits. Normal speech. Normal gait. Normal finger-nose- finger exam. PSYCHIATRIC: Appropriate mood and affect; insight and judgment normal. Data Data Last Documented VS Vital Signs Date Time Temp Pulse Resp B/P Pulse Ox O2 Delivery O2 Flow Rate FiO2 04/13/17 08:13 98.1 81 16 133/79 96 MDM Medical Decision Making Medical Screen Exam Complete: Yes Emergency Medical Condition: Yes Medical Record Reviewed: Yes (patient was seen here within the last couple weeks with the same complaint. She had a CT of her head which was negative. Her ears were irrigated and she was discharged home.) Differential Diagnosis Differential diagnosis of dizziness includes but is not limited to vertigo, dehydration, acute blood loss, sepsis, ACS Narrative Course This patient presents with lightheadedness and a clog left ear. She is currently being evaluated by a neurologist for dizziness and blurred vision. She has reportedly had a negative outpatient MRI of her head. This patient is thus medically stable for discharge to home. I will give her instructions to purchase an ear wash kit from the drugstore and use as directed. She should follow up with the neurologist for ongoing evaluation of her dizziness and blurred vision. The nurses have suggested that this patient be evaluated by case management. Diagnosis Primary Impression: Dizziness Additional Impression: Excessive cerumen in left ear canal Patient Instructions: Cerumen Impaction (ED), Dizziness (ED), General Instructions Additional Instructions: Go to the drug store and buy an ear wash kit. Ask the pharmacist for assistance if you have trouble finding it. Disposition: 01 DISCHARGE HOME Condition: Stable Radha Bell MD Apr 13, 2017 08:31
== END 2017-04-13 09:04 | disposition home or self-care (01) ==
LOC: PHED 08:07
DX: R42 Dizziness and giddiness (principal); H61.22 Impacted cerumen, left ear; I10 Essential (primary) hypertension; Z85.828 Personal history of other malignant neoplasm of skin; E78.00 Pure hypercholesterolemia, unspecified; B19.20 Unspecified viral hepatitis C without hepatic coma
CPT/HCPCS: 99282

== ENCOUNTER 2017-05-04 16:55 | Inpatient (IN) | payer OTHER, MEDICARE ==
[~2017-05-04] VITALS: Ht 165.1 cm; Wt 47.5 kg
[2017-05-04] VITALS (9 sets, daily range): BP systolic 83–144; BP diastolic 51–92; PULSE 108–121; RESP 16–36; TEMP 98.3–98.5; O2SAT 97–100
[~2017-05-04 16:55] MED LIST changes: +SODIUM BICARBONATE 8.4% INJ 50 MEQ/50 ML SYR IV ONE
--- NOTE | 2017-05-04 17:05 | PD ---
HPI . drug OD/suicide attempt Chief Complaint: drug OD/suicide attempt Time Seen by Provider: 17:05 Travel History International Travel<30 days: No Contact w/Intl Traveler<30days: No Traveled to known affect area: No History of Present Illness HPI 71 yr old female with HTN, HLD, OA, Hep C, skin cancer hx, and thyroid disease here via EMS due to drug OD and suicide attempt. Apparently patient left a note on her neighbor's door stating that she did not want to live anymore. Neighbors immediately call police and patient was found in her home. At that time she was cooperative and responsive, communicating with the police and telling them that she did not want to live anymore. She admitted to ingesting Banamine (NSAID) a horse medication, but quantity and time of ingestion is unknown. At the time of examination patient is in moderate distress and tachypneic. PFSH Past Medical History Hx Anticoagulant Therapy: No Arthritis: Yes Cancer: Yes (skin cancer) Cardiovascular Problems: Yes (htn on meds) High Cholesterol: Yes Diabetes: No Diminished Hearing: No Endocrine: No Gastrointestinal Disorders: No GERD: Yes Genitourinary: No Hepatitis: Yes (hepatitis c) Hiatal Hernia: No Hypertension: Yes Immune Disorder: No Musculoskeletal: Yes (arthritis) Neurologic: No Psychiatric: No Reproductive: No Respiratory: No Immunizations Current: No Thyroid Disease: Yes Menopausal: Yes Tubal Ligation: Yes Past Surgical History AICD: No Joint Replacement: No Pacemaker: No Tonsillectomy: Yes Other Surgery: Yes (BREAST AUG AND REMOVAL) Social History Alcohol Use: Yes (WINE DAILY) Tobacco Use: No Substance Use: No Allergies-Medications (Allergen,Severity, Reaction): Coded Allergies: Macrobid (Verified Allergy, Intermediate, UPSET STOMACH, 04/13/17) Penicillin (Verified Allergy, Intermediate, HIVES, 04/13/17) Reported Meds & Prescriptions Reported Meds & Active Scripts Active Active Prescriptions or Reported Medications Unobtainable Review of Systems General / Constitutional: No: Fever Eyes: No: Visual changes HENT: No: Headaches Cardiovascular: No: Chest Pain or Discomfort Respiratory: Positive: Shortness of Breath, Other (respiratory distress) Gastrointestinal: No: Abdominal Pain Genitourinary: No: Dysuria Musculoskeletal: No: Pain Skin: No Rash Neurologic: No: Weakness Psychiatric: No: Depression Endocrine: No: Polydipsia Hematologic/Lymphatic: No: Easy Bruising Physical Exam Narrative GENERAL: moderate distress, thin appearing. Disheveled and unkempt appearing SKIN: Warm and dry. No visible rashes or bruising. HEAD: Normocephalic and atraumatic. EYES: No scleral icterus. No injection or drainage. EOM intact, PERRLA ENT: No nasal drainage noted. NECK: Supple, trachea midline. No JVD. CARDIOVASCULAR: Tachycardic on exam RESPIRATORY: breath sounds diminished. Patient tachypneic. GASTROINTESTINAL: Abdomen soft, EXTREMITIES: No cyanosis or edema. BACK: No obvious deformity. NEURO: difficult to assess; follows general commands, but slowly. Responds to communication and replies. PSYCH: AAO x 3, Data Data Last Documented VS Vital Signs Date Time Temp Pulse Resp B/P Pulse Ox O2 Delivery O2 Flow Rate FiO2 05/04/17 17:23 98.5 119 32 128/84 05/04/17 17:08 99 Room Air Orders Electrocardiogram (05/04/17 17:11) Complete Blood Count With Diff (05/04/17 17:11) Comprehensive Metabolic Panel (05/04/17 17:11) Creatine Kinase (Cpk) (05/04/17 17:11) Prothrombin Time / Inr (Pt) (05/04/17 17:11) Act Partial Throm Time (Ptt) (05/04/17 17:11) Troponin I (05/04/17 17:11) Urinalysis - C+S If Indicated (05/04/17 17:11) Arterial Blood Gas (Abg) (05/04/17 17:11) Chest, Single Ap (05/04/17 17:11) Blood Glucose (05/04/17 17:11) Ecg Monitoring (05/04/17 17:11) Iv Access Insert/Monitor (05/04/17 17:11) Oximetry (05/04/17 17:11) Sodium Chloride 0.9% Flush (Ns Flush) (05/04/17 17:15) Drug Screen, Random Urine (05/04/17 17:11) Alcohol (Ethanol) (05/04/17 17:11) Tylenol (Acetaminophen) (05/04/17 17:11) Salicylates (Aspirin) (05/04/17 17:11) Electrocardiogram (05/04/17 ) Lactic Acid Sepsis Protocol (05/04/17 17:25) Blood Culture (05/04/17 17:25) Cbc No Diff, Includes Plts (05/05/17 05:00) Cbc No Diff, Includes Plts (05/06/17 05:00) Cbc No Diff, Includes Plts (05/07/17 05:00) Cbc No Diff, Includes Plts (05/08/17 05:00) Cbc No Diff, Includes Plts (05/09/17 05:00) Cbc No Diff, Includes Plts (05/10/17 05:00) Cbc No Diff, Includes Plts (05/11/17 05:00) Basic Metabolic Panel (Bmp) (05/05/17 05:00) Basic Metabolic Panel (Bmp) (05/06/17 05:00) Basic Metabolic Panel (Bmp) (05/07/17 05:00) Basic Metabolic Panel (Bmp) (05/08/17 05:00) Basic Metabolic Panel (Bmp) (05/09/17 05:00) Basic Metabolic Panel (Bmp) (05/10/17 05:00) Basic Metabolic Panel (Bmp) (05/11/17 05:00) Magnesium Oxide (Mag-Ox) (05/04/17 18:00) Magnesium Sulfate Inj (Magnesium Sulfate (05/04/17 18:00) Magnesium Sulfate Inj (Magnesium Sulfate (05/04/17 18:00) Potassium Chlor 20 Meq Premix (Kcl 20 Me (05/04/17 18:00) Potassium Chlor 20 Meq Premix (Kcl 20 Me (05/04/17 18:00) Potassium Chlor 40 Meq Premix (Kcl 40 Me (05/04/17 18:00) Potassium Chlor 40 Meq Premix (Kcl 40 Me (05/04/17 18:00) Potassium Phosphate (K-Phos) (05/04/17 18:00) Potassium Phosphate (K-Phos) (05/04/17 18:00) Potassium Phosphate Inj (Potassium Phosp (05/04/17 18:00) Sodium Phosphate Inj (Sodium Phosphate I (05/04/17 18:00) ^ Medication Admin Instruction (05/04/17 17:47) Notify Dr: Other (05/04/17 17:47) Inpatient Certification (05/04/17 17:47) Neuro Checks CASSIE.Q1H (05/04/17 17:50) Albuterol-Ipratropium Neb (Duoneb Neb) (05/04/17 22:00) Albuterol-Ipratropium Neb (Duoneb Neb) (05/04/17 18:00) Urinary Catheter Management CASSIE.Q1H (05/04/17 17:50) Ct Thorax/ Chest Wo Iv Contras (05/04/17 ) Sodium Bicarbonate 8.4% Inj (Sodium Bica (05/04/17 18:30) Sodium Bicarbonate 8.4% Inj (Sodium Bica (05/04/17 18:30) Sodium Bicarbonate 8.4% Inj (Sodium Bica (05/04/17 18:30) Sodium Bicarbonate 8.4% Inj (Sodium Bica (05/04/17 18:30) Sodium Bicarbonate 8.4% Inj (Sodium Bica (05/04/17 18:30) Admit Order (Ed Use Only) (05/04/17 18:47) Labs Laboratory Tests Test 05/04/17 05/04/17 17:20 17:25 White Blood Count 16.9 TH/MM3 Red Blood Count 4.93 MIL/MM3 Hemoglobin 16.0 GM/DL Hematocrit 49.3 % Mean Corpuscular Volume 100.1 FL Mean Corpuscular Hemoglobin 32.4 PG Mean Corpuscular Hemoglobin 32.4 % Concent Red Cell Distribution Width 13.0 % Platelet Count 548 TH/MM3 Mean Platelet Volume 9.2 FL Neutrophils (%) (Auto) 81.3 % Lymphocytes (%) (Auto) 6.8 % Monocytes (%) (Auto) 11.3 % Eosinophils (%) (Auto) 0.1 % Basophils (%) (Auto) 0.5 % Neutrophils # (Auto) 13.7 TH/MM3 Lymphocytes # (Auto) 1.2 TH/MM3 Monocytes # (Auto) 1.9 TH/MM3 Eosinophils # (Auto) 0.0 TH/MM3 Basophils # (Auto) 0.1 TH/MM3 CBC Comment DIFF FINAL Differential Comment Prothrombin Time 11.3 SEC Prothromb Time International 1.0 RATIO Ratio Activated Partial 20.6 SEC Thromboplast Time Sodium Level 142 MEQ/L Potassium Level 3.6 MEQ/L Chloride Level 120 MEQ/L Carbon Dioxide Level 10.2 MEQ/L Anion Gap 12 MEQ/L Blood Urea Nitrogen 10 MG/DL Creatinine 0.79 MG/DL Estimat Glomerular Filtration 71 ML/MIN Rate Random Glucose 124 MG/DL Calcium Level 8.8 MG/DL Total Bilirubin 0.4 MG/DL Aspartate Amino Transf 71 U/L (AST/SGOT) Alanine Aminotransferase 39 U/L (ALT/SGPT) Alkaline Phosphatase 89 U/L Total Creatine Kinase 106 U/L Troponin I 0.08 NG/ML Total Protein 9.2 GM/DL Albumin 3.5 GM/DL Acetaminophen Level LESS THAN 2.0 MCG/ML Ethyl Alcohol Level 99 MG/DL Blood Gas Puncture Site RT RADIAL Blood Gas Patient Temperature 98.6 Blood Gas HCO3 8 mmol/L Blood Gas Base Excess -15.7 mmol/L Blood Gas Oxygen Saturation 97 % Arterial Blood pH 7.49 Arterial Blood Partial 10 mmHg Pressure CO2 Arterial Blood Partial 118 mmHG Pressure O2 Arterial Blood Oxygen Content 23.0 Vol % Arterial Blood 1.1 % Carboxyhemoglobin Arterial Blood Methemoglobin 0.4 % Blood Gas Hemoglobin 16.8 G/DL Oxygen Delivery Device ROOM AIR Blood Gas Inspired Oxygen 21 % MDM Medical Decision Making Medical Screen Exam Complete: Yes Emergency Medical Condition: Yes Medical Record Reviewed: Yes Differential Diagnosis suicide attempt, drug overdose, respiratory distress, metabolic acidosis, Narrative Course 71 yr old female here via [facility] in acute distress due to suicide attempt with drug overdose. I immediately requested Dr. Juarez's assistance. Patient is ill. IV access obtained, labs and imaging ordered. 1717: Called poison control (May): Banamine is NSAID class of medication: problems: Nausea, vomiting, metabolic acidosis. States if any bun/creatinine abnormality that this is likely a longstanding issue. recommended testing: EKG, metabolic panel, tylenol, salicylates, recommended treatment: symptomatic and supportive treatment 1746: Dr Juarez discussed with [place]. Kern [place] [facility] [place] there was a questionable pneumothorax on CXR. CT scan negative for pneumothorax. Patient's care was transitioned to Dr. Kern. Patient was transported to the intensive care unit in stable condition, but she is very ill. 1934: Spoke with May from Poison Control: reviewed labs and treatments; was told half life negligible; she recommends ABG & BMP in 4 hours, if improving, repeat BMP in am. She also spoke with Dr. Kern. Diagnosis Primary Impression: Drug overdose, intentional Qualified Code: T50.902A - Drug overdose, intentional, initial encounter Additional Impression: Respiratory distress Admitting Information Admitting Physician Requests: Admit Scripts Unable to Obtain Active Prescriptions or Reported Meds Condition: Stable Dionna Barth May 04, 2017 17:05
[2017-05-04] MEDS ORDERED: SODIUM CHLORIDE 0.9% FLUSH 5 ML FLUSH IV FLUSH PRN (17:15)
[2017-05-04 17:28] LABS: BLOOD GAS BASE EXCESS -15.7 mmol/L (-2-2); BLOOD GAS CARBOXYHEMOGLOBIN 1.1 % (0-4); BLOOD GAS HCO3 8 mmol/L (22-26); BLOOD GAS METHEMOGLOBIN 0.4 % (0-2); BLOOD GAS O2 HGB SATURATION 97 % (90-100); BLOOD GAS PCO2 10 mmHg (38-42); BLOOD GAS PO2 118 mmHG (61-120); BLOOD GAS TOTAL HGB 16.8 G/DL (12.0-16.0); TEMP CORR TO 98.6
[2017-05-04 17:29] LABS: CRITICAL VALUE YES; DRAW SITE RT RADIAL; FIO2 21 %; NUMBER OF ARTERIAL PUNCTURES 1; OXYGEN DEVICE ROOM AIR; STAT YES; ULNAR PULSE Y
[2017-05-04 17:41] LABS: AUTOMATED NEUTROPHIL # 13.7 TH/MM3 (1.8-7.7); BASOPHIL # 0.1 TH/MM3 (0-0.2); BASOPHIL % 0.5 % (0.0-2.0); EOSINOPHIL % 0.1 % (0.0-4.0); HEMATOCRIT 49.3 % (35.0-46.0); HEMO FLAGS DIFF FINAL; LYMPH % 6.8 % (9.0-44.0); LYMPHOCYTE # 1.2 TH/MM3 (1.0-4.8); MEAN CELL VOLUME 100.1 FL (80.0-100.0); MEAN CORPUSCULAR HEMOGLOBIN 32.4 PG (27.0-34.0); MEAN CORPUSCULAR HGB CONC 32.4 % (32.0-36.0); MONO % 11.3 % (0.0-8.0); NEUT % 81.3 % (16.0-70.0); PLATELET COUNT 548 TH/MM3 (150-450); RED BLOOD COUNT 4.93 MIL/MM3 (4.00-5.30); WHITE BLOOD COUNT 16.9 TH/MM3 (4.0-11.0)
--- NOTE | 2017-05-04 17:59 | RADRPT ---
EXAM DATE/TIME: 05/04/2017 17:28 [facility] COMPARISON: CT ABDOMEN & PELVIS W CONTRAST, March 17, 2017, 9:09. INDICATIONS : Shortness of breath and palpitations. MEDICAL HISTORY : Unobtainable SURGICAL HISTORY : Unobtainable ENCOUNTER: Initial ACUITY: 1 day PAIN SCORE: Non-responsive. LOCATION: chest FINDINGS: Subtle sharply demarcated increased lucency in the left costophrenic region which may be artifactual in etiology. Lungs otherwise clear. Cardiomediastinal contours are within normal limits. Healed right -sided rib fractures are noted. Bony thorax is otherwise intact. S-shaped thoracolumbar scoliosis. CONCLUSION: 1. Questionable small subpulmonic pneumothorax, as above. Consider PA and lateral views of the chest for better evaluation. Alternatively, chest CT examination may be performed. Jorge Marina MD on May 04, 2017 at 17:54 Board Certified Radiologist. This report was verified electronically.
[2017-05-04] MEDS ORDERED: POTASSIUM PHOSPHATE MONOBASIC 500 MG TAB PO/TUBE PRN (18:00)
[2017-05-04] MEDS ORDERED: MAGNESIUM SULFATE INJ 2 GM in SODIUM CHLORIDE 0.9% INJ 96 ML IV PRN (18:00)
[2017-05-04] MEDS ORDERED: POTASSIUM CHLOR 40 MEQ PREMIX 100 ML IV PRN (18:00)
[2017-05-04] MEDS ORDERED: MAGNESIUM SULFATE INJ 4 GM in SODIUM CHLORIDE 0.9% INJ 92 ML IV PRN (18:00)
[2017-05-04] MEDS ORDERED: MAGNESIUM OXIDE 400 MG TAB PO PRN (18:00)
[2017-05-04] MEDS ORDERED: POTASSIUM PHOSPHATE INJ 30 MMOL in SODIUM CHLOR 0.9% 250 ML INJ 250 ML IV PRN (18:00)
[2017-05-04] MEDS ORDERED: POTASSIUM PHOSPHATE MONOBASIC 500 MG TAB PO PRN (18:00)
[2017-05-04] MEDS ORDERED: RESP: ALBUTEROL 2.5 MG/IPRATROPIUM 0.5 MG NEB (PRN) INH ×2 (18:00→20:30)
[2017-05-04] MEDS ORDERED: SODIUM PHOSPHATE INJ 30 MMOL in SODIUM CHLOR 0.9% 250 ML INJ 240 ML IV PRN (18:00)
[2017-05-04] MEDS ORDERED: POTASSIUM CHLOR 20 MEQ PREMIX 100 ML IV PRN ×2 (18:00)
[2017-05-04 18:09] LABS: ALT (GPT) 39 U/L (10-53); ANION GAP 12 MEQ/L (5-15); AST (GOT) 71 U/L (15-37); BICARBONATE 10.2 MEQ/L (21.0-32.0); BLOOD UREA NITROGEN 10 MG/DL (7-18); CHLORIDE 120 MEQ/L (98-107); GLOMERULAR FILTRATION RATE 71 ML/MIN (>89); POTASSIUM 3.6 MEQ/L (3.5-5.1); SODIUM (NA) 142 MEQ/L (136-145)
[2017-05-04 18:13] LABS: ALKALINE PHOSPHATASE 89 U/L (45-117); CREATINE KINASE 106 U/L (26-192); TOTAL BILIRUBIN ADULT 0.4 MG/DL (0.2-1.0)
[2017-05-04 18:15] LABS: APTT (PATIENT) 20.6 SEC (24.3-30.1); PROTHROMBIN TIME - PATIENT 11.3 SEC (9.8-11.6)
[2017-05-04 18:20] LABS: ACETAMINOPHEN LESS THAN 2.0 MCG/ML (10.0-30.0)
[2017-05-04] MEDS ORDERED: SODIUM BICARBONATE 8.4% INJ 50 MEQ/50 ML SYR IV PUSH ONE ×5 (18:30)
--- NOTE | 2017-05-04 18:47 | RADRPT ---
EXAM DATE/TIME: 05/04/2017 18:29 [facility] COMPARISON: No previous studies available for comparison. INDICATIONS : Found on floor with sob RADIATION DOSE: 3.32 CTDIvol (mGy) MEDICAL HISTORY : Cardiovascular disease. Hypertension. Hep C SURGICAL HISTORY : Tubal ligation. ENCOUNTER: Initial ACUITY: 1 day PAIN SCALE: Non-responsive LOCATION: Bilateral chest TECHNIQUE: Volumetric scanning of the chest was performed. Using automated exposure control and adjustment of t he mA and/or kV according to patient size, radiation dose was kept as low as reasonably achievable to obtain optimal diagnostic quality images. DICOM format image data is available electronically for r eview and comparison. FINDINGS: LUNGS: There is no consolidation or pneumothorax. No concerning pulmonary nodule is visualized. PLEURAE: There is no pleural thickening or pleural effusion. MEDIASTINUM: There is prominence to the ascending aorta. The descending aorta is normal. There is no adenopathy. AXILLAE: Within normal limits. No lymphadenopathy. MUSCULOSKELETAL: Moderate degenerative changes are present in the thoracic spine. Old right rib fractures are noted. MISCELLANEOUS: The visualized upper abdominal organs demonstrate no acute abnormality. CONCLUSION: Negative for an acute process. There is no pneumothorax. Mild prominence to the ascending aorta. Robson Sethi MD FACR on May 04, 2017 at 18:44 Board Certified Radiologist. This report was verified electronically.
--- NOTE | 2017-05-04 19:33 | PD ---
Physical Exam Date Seen by Provider: May 04, 2017 Time Seen by Provider: 18:00 Narrative I patient with Dionna Watson PA-C. This patient presents after intentional overdose for suicide attempt. The patient reportedly overdosed on a etl tester nsaid. When patient presented she was severely tachypneic and had altered mental status. Poison control was called and stated this could cause metabolic acidosis. The patient had a blood gas that showed metabolic acidosis with attempted respiratory compromise. Data Data Last Documented VS Vital Signs Date Time Temp Pulse Resp B/P Pulse Ox O2 Delivery O2 Flow Rate FiO2 05/04/17 17:23 98.5 119 32 128/84 05/04/17 17:08 99 Room Air Orders Electrocardiogram (05/04/17 17:11) Complete Blood Count With Diff (05/04/17 17:) Comprehensive Metabolic Panel (05/04/17 17:) Creatine Kinase (Cpk) (05/04/17 17:11) Prothrombin Time / Inr (Pt) (05/04/17 17:) Act Partial Throm Time (Ptt) (05/04/17 17:11) Troponin I (05/04/17 17:11) Urinalysis - C+S If Indicated (05/04/17 17:11) Arterial Blood Gas (Abg) (05/04/17 17:11) Chest, Single Ap (05/04/17 17:11) Blood Glucose (05/04/17 17:11) Ecg Monitoring (05/04/17 17:11) Iv Access Insert/Monitor (05/04/17 17:) Oximetry (05/04/17 17:11) Sodium Chloride 0.9% Flush (Ns Flush) (05/04/17 17:15) Drug Screen, Random Urine (05/04/17 17:11) Alcohol (Ethanol) (05/04/17 17:11) Tylenol (Acetaminophen) (05/04/17 17:11) Salicylates (Aspirin) (05/04/17 17:11) Electrocardiogram (05/04/17 ) Lactic Acid Sepsis Protocol (05/04/17 17:25) Blood Culture (05/04/17 17:25) Cbc No Diff, Includes Plts (05/05/17 05:00) Cbc No Diff, Includes Plts (05/06/17 05:00) Cbc No Diff, Includes Plts (05/07/17 05:00) Cbc No Diff, Includes Plts (05/08/17 05:00) Cbc No Diff, Includes Plts (05/09/17 05:00) Cbc No Diff, Includes Plts (05/10/17 05:00) Cbc No Diff, Includes Plts (05/11/17 05:00) Basic Metabolic Panel (Bmp) (05/05/17 05:00) Basic Metabolic Panel (Bmp) (05/06/17 05:00) Basic Metabolic Panel (Bmp) (05/07/17 05:00) Basic Metabolic Panel (Bmp) (05/08/17 05:00) Basic Metabolic Panel (Bmp) (05/09/17 05:00) Basic Metabolic Panel (Bmp) (05/10/17 05:00) Basic Metabolic Panel (Bmp) (05/11/17 05:00) Magnesium Oxide (Mag-Ox) (05/04/17 18:00) Magnesium Sulfate Inj (Magnesium Sulfate (05/04/17 18:00) Magnesium Sulfate Inj (Magnesium Sulfate (05/04/17 18:00) Potassium Chlor 20 Meq Premix (Kcl 20 Me (05/04/17 18:00) Potassium Chlor 20 Meq Premix (Kcl 20 Me (05/04/17 18:00) Potassium Chlor 40 Meq Premix (Kcl 40 Me (05/04/17 18:00) Potassium Chlor 40 Meq Premix (Kcl 40 Me (05/04/17 18:00) Potassium Phosphate (K-Phos) (05/04/17 18:00) Potassium Phosphate (K-Phos) (05/04/17 18:00) Potassium Phosphate Inj (Potassium Phosp (05/04/17 18:00) Sodium Phosphate Inj (Sodium Phosphate I (05/04/17 18:00) ^ Medication Admin Instruction (05/04/17 17:47) Notify Dr: Other (05/04/17 17:47) Inpatient Certification (05/04/17 17:47) Neuro Checks CASSIE.Q1H (05/04/17 17:50) Albuterol-Ipratropium Neb (Duoneb Neb) (05/04/17 22:00) Albuterol-Ipratropium Neb (Duoneb Neb) (05/04/17 18:00) Urinary Catheter Management CASSIE.Q1H (05/04/17 17:50) Ct Thorax/ Chest Wo Iv Contras (05/04/17 ) Sodium Bicarbonate 8.4% Inj (Sodium Bica (05/04/17 18:30) Sodium Bicarbonate 8.4% Inj (Sodium Bica (05/04/17 18:30) Sodium Bicarbonate 8.4% Inj (Sodium Bica (05/04/17 18:30) Sodium Bicarbonate 8.4% Inj (Sodium Bica (05/04/17 18:30) Sodium Bicarbonate 8.4% Inj (Sodium Bica (05/04/17 18:30) Admit Order (Ed Use Only) (05/04/17 18:47) Labs Laboratory Tests Test 05/04/17 05/04/17 17:20 17:25 White Blood Count 16.9 TH/MM3 Red Blood Count 4.93 MIL/MM3 Hemoglobin 16.0 GM/DL Hematocrit 49.3 % Mean Corpuscular Volume 100.1 FL Mean Corpuscular Hemoglobin 32.4 PG Mean Corpuscular Hemoglobin 32.4 % Concent Red Cell Distribution Width 13.0 % Platelet Count 548 TH/MM3 Mean Platelet Volume 9.2 FL Neutrophils (%) (Auto) 81.3 % Lymphocytes (%) (Auto) 6.8 % Monocytes (%) (Auto) 11.3 % Eosinophils (%) (Auto) 0.1 % Basophils (%) (Auto) 0.5 % Neutrophils # (Auto) 13.7 TH/MM3 Lymphocytes # (Auto) 1.2 TH/MM3 Monocytes # (Auto) 1.9 TH/MM3 Eosinophils # (Auto) 0.0 TH/MM3 Basophils # (Auto) 0.1 TH/MM3 CBC Comment DIFF FINAL Differential Comment Prothrombin Time 11.3 SEC Prothromb Time International 1.0 RATIO Ratio Activated Partial 20.6 SEC Thromboplast Time Sodium Level 142 MEQ/L Potassium Level 3.6 MEQ/L Chloride Level 120 MEQ/L Carbon Dioxide Level 10.2 MEQ/L Anion Gap 12 MEQ/L Blood Urea Nitrogen 10 MG/DL Creatinine 0.79 MG/DL Estimat Glomerular Filtration 71 ML/MIN Rate Random Glucose 124 MG/DL Calcium Level 8.8 MG/DL Total Bilirubin 0.4 MG/DL Aspartate Amino Transf 71 U/L (AST/SGOT) Alanine Aminotransferase 39 U/L (ALT/SGPT) Alkaline Phosphatase 89 U/L Total Creatine Kinase 106 U/L Troponin I 0.08 NG/ML Total Protein 9.2 GM/DL Albumin 3.5 GM/DL Acetaminophen Level LESS THAN 2.0 MCG/ML Ethyl Alcohol Level 99 MG/DL Blood Gas Puncture Site RT RADIAL Blood Gas Patient Temperature 98.6 Blood Gas HCO3 8 mmol/L Blood Gas Base Excess -15.7 mmol/L Blood Gas Oxygen Saturation 97 % Arterial Blood pH 7.49 Arterial Blood Partial 10 mmHg Pressure CO2 Arterial Blood Partial 118 mmHG Pressure O2 Arterial Blood Oxygen Content 23.0 Vol % Arterial Blood 1.1 % Carboxyhemoglobin Arterial Blood Methemoglobin 0.4 % Blood Gas Hemoglobin 16.8 G/DL Oxygen Delivery Device ROOM AIR Blood Gas Inspired Oxygen 21 % MDM Medical Record Reviewed: Yes Supervised Visit with RAYMUNDO: Yes Narrative Course 71-year-old female presents with intentional overdose. The patient ingested a etl tester nonsteroidal anti-inflammatory drug. Poison control was contacted. The patient was severely tachypneic and tachycardic. Blood gas showed metabolic acidosis with respiratory compromise. The patient's bicarbonate initially was 7.8. Dr. Tommie Vidales, on-call tube machine operator helper, was called who was gracious enough to come down and see the patient. The patient will be emergently taken to the intensive care unit. Dr. Vidales did give 4 Amps of bicarbonate intravenously. Serum alcohol is 99. Patient was hemoconcentrated with an elevated white blood cell count. Renal function was adequate at this time. Acetaminophen level was within normal limits. The rest of her tox screen is pending at this time. She'll be admitted to the intensive care unit under Dr. Vidales. Critical Care Narrative Aggregate critical care time was 45 minutes. Time to perform other separately billable procedures was not included in the critical care time. My time did not include minutes spent treating any other patients simultaneously or on activities that did not directly contribute to the patient's treatment. The services I provided to this patient were to treat and/or prevent clinically significant deterioration that could result in: I provided critical care services requiring my management, as noted below: Chart data review, documentation time, medication orders and management, vital sign assessments/reviewing monitor data, ordering and reviewing lab tests, ordering and interpreting/reviewing x-rays and diagnostic studies, care of the patient and discussion of the patient with the admitting physicians. Diagnosis Primary Impression: Drug overdose, intentional Qualified Code: T50.902A - Drug overdose, intentional, initial encounter Additional Impressions: Respiratory distress Alcohol intoxication Scripts Unable to Obtain Active Prescriptions or Reported Meds Condition: Stable Shamir Juarez MD May 04, 2017 19:33
[2017-05-04] MEDS ORDERED: LACTATED RINGER'S 1000 ML INJ 1,000 ML IV SCH (19:45)
[2017-05-04 20:03] LABS: BLOOD, URINE NEG (NEG); GLUCOSE,URINE NEG (NEG); HYALINE CAST, URINE 4 /lpf (RARE); KETONE, URINE 40 mg/dL (NEG); NITRITE,URINE NEG (NEG); SQUAMOUS EPITHELIAL CELL URINE <1 /hpf (0-5); URINE COLOR YELLOW (YELLW/STRAW)
[2017-05-04 20:04] LABS: COMMENT (UR) CATH-CULT NOT IND; CULTURE IF INDICATED CATH CULTURE NOT IND
[2017-05-04 20:29] LABS: LACTIC ACID GHOST NOT REPORTABLE
[2017-05-04] MEDS ORDERED: PROPOFOL 1000 MG/100 ML INJ 100 ML IV SCH (20:30)
[2017-05-04] MEDS ORDERED: LACTULOSE SYRUP 20 GM/30 ML CUP PO PRN (20:30)
[2017-05-04] MEDS ORDERED: BISACODYL 10 MG SUPP RECTAL PRN (20:30)
[2017-05-04] MEDS ORDERED: ONDANSETRON HCL 4 MG/2 ML VIAL IV PRN ×2 (20:30→22:45)
[2017-05-04] MEDS ORDERED: LORazepam 2 MG/ML VIAL IV PRN (20:30)
[2017-05-04] MEDS ORDERED: SENNOSIDES 8.6 MG TAB PO PRN (20:30)
[2017-05-04] MEDS ORDERED: MISCELLANEOUS NURSING INFORMATION XX SCH (20:30)
[2017-05-04] MEDS ORDERED: MAGNESIUM HYDROXIDE SUSP 30 ML CUP PO PRN (20:30)
[2017-05-04] MEDS ORDERED: CHLORHEXIDINE GLUCONATE 2 % 1 PACK (2 CLOTHS) TOP PRN (20:30)
[2017-05-04] MEDS: RESP: ALBUTEROL 2.5 MG/IPRATROPIUM 0.5 MG NEB (SCH) INH (20:37)
--- NOTE | 2017-05-04 20:39 | HHI.HP ---
[facility] Service Critical Care Medicine Primary Care Physician Non-Staff Admission Diagnosis metabolic acidosis, intentional overdose. Diagnosis: Chief Complaint: Drug OD Travel History International Travel<30 Days: No Contact w/Intl Traveler <30 Da: No Traveled to Known Affected Are: No History of Present Illness Intentional drug OD woth ASA level > 110 and severe symptoms of toxicity. Review of Systems ROS Unobtainable, altered, no family Past Family Social History Allergies: Coded Allergies: Macrobid (Verified Allergy, Intermediate, UPSET STOMACH, 04/13/17) Penicillin (Verified Allergy, Intermediate, HIVES, 04/13/17) Past Medical History Past Medical History Hx Anticoagulant Therapy: No Arthritis: Yes Cancer: Yes (skin cancer) Cardiovascular Problems: Yes (htn on meds) High Cholesterol: Yes Diabetes: No Diminished Hearing: No Endocrine: No Gastrointestinal Disorders: No GERD: Yes Genitourinary: No Hepatitis: Yes (hepatitis c) Hiatal Hernia: No Hypertension: Yes Immune Disorder: No Musculoskeletal: Yes (arthritis) Neurologic: No Psychiatric: No Reproductive: No Respiratory: No Immunizations Current: No Thyroid Disease: Yes Menopausal: Yes Tubal Ligation: Yes Past Surgical History AICD: No Joint Replacement: No Pacemaker: No Tonsillectomy: Yes Other Surgery: Yes (BREAST AUG AND REMOVAL) Social History Alcohol Use: Yes (WINE DAILY) Tobacco Use: No Substance Use: No Allergies-Medications Allergies-Medications (Allergen,Severity, Reaction): Coded Allergies: Macrobid (Verified Allergy, Intermediate, UPSET STOMACH, 04/13/17) Penicillin (Verified Allergy, Intermediate, HIVES, 04/13/17) Reported Meds & Prescriptions Reported Meds & Active Scripts Active Active Prescriptions or Reported Medications Unobtainable Physical Exam Vital Signs Vital Signs Date Time Temp Pulse Resp B/P Pulse Ox O2 Delivery O2 Flow Rate FiO2 05/04/17 19:11 16 97 Nasal Cannula 2 05/04/17 17:23 98.5 119 32 128/84 05/04/17 17:08 122 36 99 Room Air 05/04/17 16:59 121 36 144/92 98 Physical Exam Gen: Agitated, incoherent. Head: Atraumatic. Neck: Supple. Lungs: Few crackles, tachypnea at 37. Heart: Tachycardia, no JVD. Abdomen: No guarding, soft. Quet. Extremities: Dry, warm. Neuro: Tremulous, confused, moves 4 limbs spontaneously. Laboratory Laboratory Tests Test 05/04/17 05/04/17 05/04/17 05/04/17 17:20 17:25 17:30 18:05 White Blood Count 16.9 Red Blood Count 4.93 Hemoglobin 16.0 Hematocrit 49.3 Mean Corpuscular Volume 100.1 Mean Corpuscular Hemoglobin 32.4 Mean Corpuscular Hemoglobin 32.4 Concent Red Cell Distribution Width 13.0 Platelet Count 548 Mean Platelet Volume 9.2 Neutrophils (%) (Auto) 81.3 Lymphocytes (%) (Auto) 6.8 Monocytes (%) (Auto) 11.3 Eosinophils (%) (Auto) 0.1 Basophils (%) (Auto) 0.5 Neutrophils # (Auto) 13.7 Lymphocytes # (Auto) 1.2 Monocytes # (Auto) 1.9 Eosinophils # (Auto) 0.0 Basophils # (Auto) 0.1 CBC Comment DIFF FINAL Differential Comment Prothrombin Time 11.3 Prothromb Time International 1.0 Ratio Activated Partial 20.6 Thromboplast Time Sodium Level 142 Potassium Level 3.6 Chloride Level 120 Carbon Dioxide Level 10.2 Anion Gap 12 Blood Urea Nitrogen 10 Creatinine 0.79 Estimat Glomerular Filtration 71 Rate Random Glucose 124 Serum Osmolality 327 Calcium Level 8.8 Total Bilirubin 0.4 Aspartate Amino Transf 71 (AST/SGOT) Alanine Aminotransferase 39 (ALT/SGPT) Alkaline Phosphatase 89 Total Creatine Kinase 106 Troponin I 0.08 Total Protein 9.2 Albumin 3.5 Acetaminophen Level LESS THAN 2.0 Ethyl Alcohol Level 99 Blood Gas Puncture Site RT RADIAL Blood Gas Patient Temperature 98.6 Blood Gas HCO3 8 Blood Gas Base Excess -15.7 Blood Gas Oxygen Saturation 97 Arterial Blood pH 7.49 Arterial Blood Partial 10 Pressure CO2 Arterial Blood Partial 118 Pressure O2 Arterial Blood Oxygen Content 23.0 Arterial Blood 1.1 Carboxyhemoglobin Arterial Blood Methemoglobin 0.4 Blood Gas Hemoglobin 16.8 Oxygen Delivery Device ROOM AIR Blood Gas Inspired Oxygen 21 Salicylates Level 112.6 Lactic Acid Level 4.8 Test 05/04/17 05/04/17 19:30 19:46 Urine Color YELLOW Urine Turbidity CLEAR Urine pH 6.0 Urine Specific [place] 1.015 Urine Protein 30 Urine Glucose (UA) NEG Urine Ketones 40 Urine Occult Blood NEG Urine Nitrite NEG Urine Bilirubin NEG Urine Urobilinogen LESS THAN 2.0 Urine Leukocyte Esterase NEG Urine WBC 3 Urine Squamous Epithelial <1 Cells Urine Hyaline Casts 4 Microscopic Urinalysis Comment CATH-CULT NOT IND Blood Gas Puncture Site RT RADIAL Blood Gas Patient Temperature 98.6 Blood Gas HCO3 18 Blood Gas Base Excess -3.0 Blood Gas Oxygen Saturation 97 Arterial Blood pH 7.69 Arterial Blood Partial 14 Pressure CO2 Arterial Blood Partial 99 Pressure O2 Arterial Blood Oxygen Content 20.2 Arterial Blood 1.4 Carboxyhemoglobin Arterial Blood Methemoglobin 0.5 Blood Gas Hemoglobin 14.8 Oxygen Delivery Device ROOM AIR Blood Gas Inspired Oxygen 21 Date/Time Procedure Status Source Growth 05/04/17 18:05 Aerobic Blood Culture Received Blood Peripheral Pending 05/04/17 18:05 Anaerobic Blood Culture Received Blood Peripheral Pending Result Diagram: 05/04/17 1720 05/04/17 1720 Assessment and Plan Assessment and Plan Assessment: 1. Salicylate toxicity. 2. Suicidal ideation. 3. Intentional drug OD. 4. Encephalopathy. Plan: 1. Intubate, hyperventilate > 30. 2. Serial ABG. 3. Bicarb gtt in dextrose. 4. Electrolyte replacement, follow K closely. 5. Protonix. 6. SCDs. 7. Hemodialysis. 8. Serial urine pH. Overall impression: Critically ill with potentially lethal salicylate toxicity. We will use both kidneys and dialysis to remove drug. Therefore will continue to drive pH > 7.50 and follow urine pH up to 8. Shamir Sanchez MD May 04, 2017 20:39
[2017-05-04] MEDS ORDERED: MIDAZOLAM HCL 5 MG/ML VIAL (1 ML) IM ONE (20:45)
[2017-05-04] MEDS ORDERED: NOREPINEPHRINE-DEXTROSE DRIP 250 ML IV ONE (20:54)
[2017-05-04] MEDS: DOCUSATE SODIUM 50 MG/SENNA 8.6 MG TAB PO SCH (21:00)
[2017-05-04] MEDS ORDERED: HEPARIN SODIUM - SQ 10,000 UNITS/ML VIAL ONE (21:25)
[2017-05-04 21:59] LABS: AMPHETAMINE, URINE NEG (NEG); BARBITURATES, URINE NEG (NEG); COCAINE, URINE NEG (NEG)
[2017-05-04] MEDS ORDERED: SODIUM BICARBONATE 8.4% INJ 150 MEQ in DEXTROSE 5% IN WATE 1000ML INJ 1,000 ML IV SCH ×2 (22:00)
[2017-05-04 22:02] LABS: BLOOD GAS BASE EXCESS -2.4 mmol/L (-2-2); BLOOD GAS CARBOXYHEMOGLOBIN 0.9 % (0-4); BLOOD GAS HCO3 20 mmol/L (22-26); BLOOD GAS METHEMOGLOBIN 1.2 % (0-2); BLOOD GAS O2 HGB SATURATION 98 % (90-100); BLOOD GAS OXYGEN CONTENT 19.4 Vol % (12.0-20.0); BLOOD GAS PCO2 26 mmHg (38-42); BLOOD GAS PO2 516 mmHg (61-120); BLOOD GAS TOTAL HGB 13.1 G/DL (12.0-16.0); TEMP CORR TO 98.6
[2017-05-04 22:03] LABS: CRITICAL VALUE NO; FIO2 100 %; OXYGEN DEVICE VENTILATOR
[2017-05-04 22:04] LABS: DRAW SITE ART LINE; NUMBER OF ARTERIAL PUNCTURES 1; STAT YES; ULNAR PULSE PRESENT; VENT SETTINGS SEE COMMENTS
[2017-05-04 22:24] LABS: BICARBONATE 22.3 MEQ/L (21.0-32.0); POTASSIUM 3.4 MEQ/L (3.5-5.1); TOTAL BILIRUBIN ADULT 0.7 MG/DL (0.2-1.0)
[2017-05-04 22:28] LABS: CALCIUM-PROTEIN CORRECTED 7.4 MG/DL (8.5-10.1)
--- NOTE | 2017-05-04 22:28 | RADRPT ---
EXAM DATE/TIME: 05/04/2017 22:04 [place] COMPARISON: CHEST SINGLE AP, May 04, 2017, 17:28. INDICATIONS : Status post ET tube placement and central line placement. MEDICAL HISTORY : None. SURGICAL HISTORY : None. ENCOUNTER: Subsequent ACUITY: 1 day PAIN SCORE: Non-responsive. LOCATION: chest FINDINGS: ET tube, nasogastric tube and central line are in good position. Lungs are clear. The heart and pulm onary vascularity are normal. Scoliosis is noted. CONCLUSION: Support apparatus in good position. Lungs are clear. Robson Sethi MD FACR on May 04, 2017 at 22:26 Board Certified Radiologist. This report was verified electronically.
[2017-05-04] MEDS ORDERED: ACETAMINOPHEN 325 MG TAB PO PRN (22:45)
[2017-05-04] MEDS ORDERED: cloNIDine HCL 0.1 MG TAB PO PRN (22:45)
[2017-05-04] MEDS ORDERED: NITROGLYCERIN 0.4 MG SL 25 TABS/BTL SL PRN (22:45)
[2017-05-04] MEDS ORDERED: GELATIN 12 MM/7 MM FOAM TOPICAL PRN (22:45)
[2017-05-04] MEDS ORDERED: HEPARIN SODIUM - IV 10,000 UNITS/10 ML VIAL IV FLUSH PRN (22:45)
[2017-05-04] MEDS ORDERED: GENTAMICIN SULFATE (DIALYSIS USE ONLY) 20 MG/2 ML VIAL OTHER PRN (22:45)
[2017-05-04] MEDS ORDERED: HEPARIN SODIUM - IV 10,000 UNITS/10 ML VIAL OTHER PRN (22:45)
[2017-05-04] MEDS ORDERED: diphenhydrAMINE HCL 25 MG CAP PO PRN (22:45)
[2017-05-04] MEDS ORDERED: SODIUM CHLOR 0.9% 1000 ML IV PRN ×2 (22:45)
[2017-05-04] MEDS ORDERED: NS 250 ML IV PRN (22:45)
[2017-05-04] MEDS ORDERED: ALBUMIN HUMAN 25% 25 GM/100 ML BAGP IV PRN (22:45)
[2017-05-04] MEDS ORDERED: SODIUM CHLORIDE 0.9% FLUSH 10 ML FLUSH IV FLUSH PRN (22:45)
[2017-05-04] MEDS ORDERED: MANNITOL 12.5 GM/50 ML VIAL IV PRN (22:45)
[2017-05-04] MEDS ORDERED: fentaNYL DRIP 250 ML IV SCH (23:00)
--- NOTE | 2017-05-04 23:20 | PD.PROCEDR ---
Procedure Note Procedure DX: Salicylate toxicity OP: 1. Orotracheal Intubation (21837) 2. Insertion Left Subclavian Vein Central Line (64681) 3. Insertion Right Femoral Hemodialysis Catheter (99412) 4. Insertion Right Common Femoral Arterial Line (79348) Procedure: Time out performed. Versed 10 mg im. Left chest prepped and draped. Left subclavian vein cannulated and wire advanced. Catheter passed over wire to 17 cm. Lumens aspirated and flushed. Dressing applied. With gradual sedation accomplished, bag mask ventilation and intubation with 8.0 tube. Position confirmed with CO2 detection, braeth sounds, sats 100%. Right groin prepped and draped. Using ultrasound guidance the common femoral artery was cannulated and wire advanced. Catheter passed over wire to 13 cm. Good waveform observed. Using ultrasound the common femoral vein was cannulated and wire advanced. Hemodialysis catheter inserted over wire to 21 cm. Lumens aspirated, flushed, and packed with heparin 1000 u/ml. Dressings applied. CXR with ET tube and central ine in good position, suitable for use. Shamir Sanchez MD May 04, 2017 23:20
[2017-05-04] MEDS ORDERED: SODIUM CHLOR 0.9% 1000 ML INJ 1,000 ML IV ONE (23:30)
[2017-05-04] MEDS ORDERED: TERBUTALINE INJ 1 MG/ML AMP SQ PRN (23:30)
[2017-05-05] VITALS (23 sets, daily range): BP systolic 76–130; BP diastolic 46–64; PULSE 69–100; RESP 0–34; TEMP 98.3–100.3; O2SAT 90–100
[2017-05-05 00:43] LABS: BLOOD GAS BASE EXCESS 1.9 mmol/L (-2-2); BLOOD GAS CARBOXYHEMOGLOBIN 1.2 % (0-4); BLOOD GAS HCO3 24 mmol/L (22-26); BLOOD GAS METHEMOGLOBIN 1.1 % (0-2); BLOOD GAS O2 HGB SATURATION 98 % (90-100); BLOOD GAS OXYGEN CONTENT 19.5 Vol % (12.0-20.0); BLOOD GAS PCO2 23 mmHg (38-42); BLOOD GAS PO2 333 mmHg (61-120); BLOOD GAS TOTAL HGB 13.6 G/DL (12.0-16.0); TEMP CORR TO 98.6
[2017-05-05 00:44] LABS: CRITICAL VALUE NO; OXYGEN DEVICE VENT
[2017-05-05 00:45] LABS: DRAW SITE ART LINE; FIO2 70 %; STAT NO; ULNAR PULSE PRESENT; VENT SETTINGS SEE COMMENTS
[2017-05-05] MEDS: NOREPINEPHRINE-DEXTROSE DRIP 250 ML IV SCH ×2 (01:07→06:00)
[2017-05-05] MEDS: PROPOFOL 1000 MG/100 ML INJ 100 ML IV SCH ×2 (02:29→07:54)
[2017-05-05 03:00] LABS: BLOOD GAS BASE EXCESS 3.8 mmol/L (-2-2); BLOOD GAS CARBOXYHEMOGLOBIN 1.3 % (0-4); BLOOD GAS HCO3 25 mmol/L (22-26); BLOOD GAS METHEMOGLOBIN 1.1 % (0-2); BLOOD GAS O2 HGB SATURATION 98 % (90-100); BLOOD GAS OXYGEN CONTENT 21.1 Vol % (12.0-20.0); BLOOD GAS PCO2 20 mmHg (38-42); BLOOD GAS PO2 234 mmHg (61-120); TEMP CORR TO 98.6
[2017-05-05 03:01] LABS: CRITICAL VALUE YES
[2017-05-05 03:02] LABS: OXYGEN DEVICE VENT
[2017-05-05 03:03] LABS: DRAW SITE ART LINE; FIO2 50 %; STAT NO; ULNAR PULSE PRESENT; VENT SETTINGS SEE COMMENTS
[2017-05-05] MEDS: RESP: ALBUTEROL 2.5 MG/IPRATROPIUM 0.5 MG NEB (SCH) INH ×3 (03:26→20:16)
[2017-05-05] MEDS ORDERED: CHLORHEXIDINE GLUCONATE 2 % 1 PACK (2 CLOTHS) TOP SCH (04:00)
[2017-05-05 04:32] LABS: BLOOD GAS BASE EXCESS 4.7 mmol/L (-2-2); BLOOD GAS CARBOXYHEMOGLOBIN 1.4 % (0-4); BLOOD GAS HCO3 26 mmol/L (22-26); BLOOD GAS METHEMOGLOBIN 1.1 % (0-2); BLOOD GAS O2 HGB SATURATION 98 % (90-100); BLOOD GAS PCO2 22 mmHg (38-42); BLOOD GAS PO2 234 mmHg (61-120); TEMP CORR TO 98.6
[2017-05-05 04:33] LABS: AUTOMATED NEUTROPHIL # 10.4 TH/MM3 (1.8-7.7); BASOPHIL # 0.1 TH/MM3 (0-0.2); BASOPHIL % 0.4 % (0.0-2.0); HEMATOCRIT 35.1 % (35.0-46.0); LYMPHOCYTE # 1.4 TH/MM3 (1.0-4.8); MEAN CELL VOLUME 95.4 FL (80.0-100.0); MEAN CORPUSCULAR HEMOGLOBIN 33.5 PG (27.0-34.0); MEAN CORPUSCULAR HGB CONC 35.1 % (32.0-36.0); MONO % 15.7 % (0.0-8.0); NEUT % 73.9 % (16.0-70.0); PLATELET COUNT 411 TH/MM3 (150-450); RED BLOOD COUNT 3.68 MIL/MM3 (4.00-5.30); RED CELL DISTRIBUTION WIDTH 13.1 % (11.6-17.2)
[2017-05-05 04:33] LABS: CRITICAL VALUE YES; OXYGEN DEVICE VENTILATOR
[2017-05-05 04:34] LABS: DRAW SITE ART LINE; FIO2 50 %; STAT NO
[2017-05-05 04:36] LABS: INTERNATIONAL NORMALIZED RATIO 1.2 RATIO; PROTHROMBIN TIME - PATIENT 13.7 SEC (9.8-11.6)
[2017-05-05 04:43] LABS: HEMO FLAGS AUTO DIFF
[2017-05-05 05:22] LABS: SCAN/DIFF AUTO DIFF CONFIRMED
[2017-05-05 05:25] LABS: ALKALINE PHOSPHATASE 63 U/L (45-117); ALT (GPT) 29 U/L (10-53); ANION GAP 10 MEQ/L (5-15); AST (GOT) 56 U/L (15-37); BICARBONATE 28.4 MEQ/L (21.0-32.0); BLOOD UREA NITROGEN 6 MG/DL (7-18); CHLORIDE 102 MEQ/L (98-107); GLOMERULAR FILTRATION RATE 106 ML/MIN (>89); MAGNESIUM 1.5 MG/DL (1.5-2.5); SODIUM (NA) 140 MEQ/L (136-145); TOTAL BILIRUBIN ADULT 0.7 MG/DL (0.2-1.0)
[2017-05-05 05:27] LABS: POTASSIUM 2.7 MEQ/L (3.5-5.1)
[2017-05-05] MEDS: POTASSIUM CHLOR 40 MEQ PREMIX 100 ML IV PRN ×2 (05:39→07:52)
[2017-05-05 06:09] LABS: BLOOD GAS BASE EXCESS 5.1 mmol/L (-2-2); BLOOD GAS CARBOXYHEMOGLOBIN 1.4 % (0-4); BLOOD GAS HCO3 27 mmol/L (22-26); BLOOD GAS METHEMOGLOBIN 1.2 % (0-2); BLOOD GAS O2 HGB SATURATION 98 % (90-100); BLOOD GAS OXYGEN CONTENT 21.3 Vol % (12.0-20.0); BLOOD GAS PCO2 23 mmHg (38-42); BLOOD GAS PO2 224 mmHg (61-120); BLOOD GAS TOTAL HGB 15.2 G/DL (12.0-16.0)
[2017-05-05 06:10] LABS: CRITICAL VALUE YES; FIO2 50 %; OXYGEN DEVICE VENT; VENT SETTINGS SEE COMMENTS
[2017-05-05 06:11] LABS: DRAW SITE ART LINE; STAT NO; TEMP CORR TO 98.6; ULNAR PULSE PRESENT
[2017-05-05] MEDS ORDERED: CHLORHEXIDINE 0.12% (ORAL KIT) 15 ML CUP MT SCH (08:00)
[2017-05-05] MEDS: DOCUSATE SODIUM 50 MG/SENNA 8.6 MG TAB PO SCH ×2 (08:08→21:17)
[2017-05-05] MEDS ORDERED: PANTOPRAZOLE SODIUM 40 MG VIAL IV SCH (09:00)
[2017-05-05 09:21] LABS: BLOOD GAS BASE EXCESS 4.2 mmol/L (-2-2); BLOOD GAS CARBOXYHEMOGLOBIN 1.4 % (0-4); BLOOD GAS HCO3 26 mmol/L (22-26); BLOOD GAS METHEMOGLOBIN 1.1 % (0-2); BLOOD GAS O2 HGB SATURATION 98 % (90-100); BLOOD GAS OXYGEN CONTENT 17.1 Vol % (12.0-20.0); BLOOD GAS PCO2 23 mmHg (38-42); BLOOD GAS PO2 243 mmHg (61-120); BLOOD GAS TOTAL HGB 12.1 G/DL (12.0-16.0); CRITICAL VALUE YES; TEMP CORR TO 98.6
[2017-05-05 09:22] LABS: DRAW SITE ART LINE; FIO2 50 %; OXYGEN DEVICE VENTILATOR; STAT NO; VENT SETTINGS PRVC/AC 500/24
[2017-05-05] MEDS ORDERED: ALBUMIN HUMAN 5% 25 GM/500 ML BOTTLE IV ONE (09:45)
--- NOTE | 2017-05-05 10:11 | HHI.CCPN ---
Subjective Remarks/Hospital Course Hospital Course: Intentional drug OD woth ASA level > 110 and severe symptoms of toxicity. Subjective: 05/05: required emergent hemodialysis overnight for severe life-threatening ASA toxicity. this morning, levels are downtrending x 3. urine alkalinization continues. lactate is clearing, but delayed clearance which is likely a result of poor hepatic clearance, age, and critical illness, though this is a poor prognostic factor in her survival. I discussed her care with poison control, and no need to continue alkalinization. still minimally responsive. Objective Vital Signs Date Time Temp Pulse Resp B/P Pulse Ox O2 Delivery O2 Flow Rate FiO2 05/05/17 09:00 71 24 109/57 100 101/50 05/05/17 08:19 50 05/05/17 08:00 100.3 05/04/17 19:11 Nasal Cannula 2 Intake and Output 05/04/17 05/04/17 05/05/17 08:00 16:00 00:00 Intake Total 3539 ml Output Total 495 ml Balance 3044 ml Result Diagram: 05/05/17 0350 05/05/17 0350 Other Results Laboratory Tests Test 05/04/17 05/04/17 05/05/17 05/05/17 17:25 21:54 00:28 02:44 Blood Gas Puncture Site RT RADIAL ART LINE ART LINE ART LINE Blood Gas Patient Temperature 98.6 98.6 98.6 98.6 Blood Gas HCO3 8 mmol/L 20 mmol/L 24 mmol/L 25 mmol/L (22-26) (22-26) (22-26) (22-26) Blood Gas Base Excess -15.7 mmol/L -2.4 mmol/L 1.9 mmol/L 3.8 mmol/L (-2-2) (-2-2) (-2-2) (-2-2) Blood Gas Oxygen Saturation 97 % (90-100) 98 % (90-100) 98 % (90-100) 98 % (90- 100) Arterial Blood pH 7.49 7.50 7.62 7.70 (7.380-7.420) (7.380-7.420) (7.380-7.420) (7.380-7.420) Arterial Blood Partial 10 mmHg (38-42) 26 mmHg (38-42) 23 mmHg (38-42) 20 mmHg ( 38-42) Pressure CO2 Arterial Blood Partial 118 mmHG 516 mmHg 333 mmHg 234 mmHg Pressure O2 (61-120) (61-120) (61-120) (61-120) Arterial Blood Oxygen Content 23.0 Vol % 19.4 Vol % 19.5 Vol % 21.1 Vol % (12.0-20.0) (12.0-20.0) (12.0-20.0) (12.0-20.0) Arterial Blood 1.1 % (0-4) 0.9 % (0-4) 1.2 % (0-4) 1.3 % (0-4) Carboxyhemoglobin Arterial Blood Methemoglobin 0.4 % (0-2) 1.2 % (0-2) 1.1 % (0-2) 1.1 % (0-2) Blood Gas Hemoglobin 16.8 G/DL 13.1 G/DL 13.6 G/DL 15.0 G/DL (12.0-16.0) (12.0-16.0) (12.0-16.0) (12.0-16.0) Oxygen Delivery Device ROOM AIR VENTILATOR VENT VENT Blood Gas Inspired Oxygen 21 % 100 % 70 % 50 % Blood Gas Ventilator Setting SEE COMMENTS SEE COMMENTS SEE COMMENTS Test 05/05/17 05/05/17 05/05/17 04:15 05:55 09:15 Blood Gas Puncture Site ART LINE ART LINE ART LINE Blood Gas Patient Temperature 98.6 98.6 98.6 Blood Gas HCO3 26 mmol/L 27 mmol/L 26 mmol/L (22-26) (22-26) (22-26) Blood Gas Base Excess 4.7 mmol/L 5.1 mmol/L 4.2 mmol/L (-2-2) (-2-2) (-2-2) Blood Gas Oxygen Saturation 98 % (90-100) 98 % (90-100) 98 % (90-100) Arterial Blood pH 7.67 7.66 7.65 (7.380-7.420) (7.380-7.420) (7.380-7.420) Arterial Blood Partial 22 mmHg (38-42) 23 mmHg (38-42) 23 mmHg (38-42) Pressure CO2 Arterial Blood Partial 234 mmHg 224 mmHg 243 mmHg Pressure O2 (61-120) (61-120) (61-120) Arterial Blood Oxygen Content 17.0 Vol % 21.3 Vol % 17.1 Vol % (12.0-20.0) (12.0-20.0) (12.0-20.0) Arterial Blood 1.4 % (0-4) 1.4 % (0-4) 1.4 % (0-4) Carboxyhemoglobin Arterial Blood Methemoglobin 1.1 % (0-2) 1.2 % (0-2) 1.1 % (0-2) Blood Gas Hemoglobin 12.0 G/DL 15.2 G/DL 12.1 G/DL (12.0-16.0) (12.0-16.0) (12.0-16.0) Oxygen Delivery Device VENTILATOR VENT VENTILATOR Blood Gas Ventilator Setting COMMENT SEE COMMENTS PRVC/AC 500/24 Blood Gas Inspired Oxygen 50 % 50 % 50 % Objective Remarks Gen: elderly female, lying in bed, intubated, sedated, critically ill. Head: Atraumatic.mucous membranes dry. Neck: trachea midline. no jvd. right ij tlc clean dry intact. Lungs: PRVC. fio2 40%. equal chest rise. Heart: normal rate, regular rhythm. sinus by tele. Abdomen: No guarding, soft. Extremities: Dry, warm. right femoral vas cath clean dry intact. Neuro: RASS -3. w/d x 4. does not follow commands. A/P Assessment and Plan Assessment: 71yF with intentional salicylate overdose and severe life- threatening toxicity now s/p emergent HD. From poison control standpoint, no need to continue checking levels. no need for further HD. now managing end- organ complications, including ongoing lactic acidosis, hypoxic respiratory failure, toxic encephalopathy. Remains critically ill with multi-organ dysfunction at this point. Plan: Salicylate toxicity -- stop checking levels -- monitor clinically Acute hypoxic respiratory failure -- when encephalopathy resolves, will start SBT Acute severe toxic encephalopathy -- secondary to salicylate overdose -- frequent neuro checks -- prop/fent for vent synchrony and goal RASS -1. -- avoid long-acting sedatives. Lactic Acidosis -- likely secondary to poor clearance and age. also possibly hypovolemia -- 500cc 5% albumin -- trend lactate Hypovolemic Shock, possible Distributive Shock -- albumin as above -- mivf NS @ 125 cc/hr. -- continue Levophed for map > 65 mmHg -- send random cortisol level to r/o adrenal insufficiency as a confounding factor Metabolic Alkalosis -- secondary to iatrogenic alkalinization -- d/c bicarb drip -- allow to normalize -- may require prn abg to trend pH. Acute protein calorie malnutrition- moderate -- NPO while on vasopressors. Hypokalemia Hypophosphatemia -- likely secondary to alkalinization. will closely monitor as we decrease serum pH to normal. replace prn per protocol. Suicidal Ideation with attempt -- psych consult if she stabilizes -- [place]al[place] Act SCDs, SQH, protonix for ppx. Lines: -- 05/04 right femoral art line, still requiring for BP monitoring on vasopressors and serial ABGs -- 05/04 right femoral vas cath- keep today. could d/c late today or tomorrow if remains stable. -- 05/04 left SC TLC- keep while on vasopressors. trend cvp. Dispo: remain in the ICU. very critically ill. Critical Care Time: 76 minutes, exclusive of separately billable procedures. Duran Kern MD May 05, 2017 10:11
--- NOTE | 2017-05-05 10:22 | PD.CONS ---
[facility] Service Nephrology Consult Requested By . Reason for Consult Salicylate poisoning. Primary Care Physician Non-Staff History of Present Illness Ms. Ward is a 71 year old lady with history of depression, who tried to commit suicide yesterday. She apparently has had multiple attempts before. She was found to have a salicylate level of 112.6. She was found to have low bicarbonate, but curiously anion gap was 12. Had some respiratory alkalosis. She was admitted to ICU, intubated. I was consulted for dialysis. Dialysis was accomplished yesterday on an emergent basis. 4 hours of dialysis, with blood flow of 400 ml/min. No fluid removed. Tolerated it well. Salicylate level is less than 30. Review of Systems ROS Limitations: Clinical Condition Past Family Social History Allergies: Coded Allergies: Macrobid (Verified Allergy, Intermediate, UPSET STOMACH, 04/13/17) Penicillin (Verified Allergy, Intermediate, HIVES, 04/13/17) Past Medical History Hypertension Depression Hepatitis C Past Surgical History Breast augmentation Active Ordered Medications Current Medications Medications (Trade) Dose Ordered Sig/Deepak Route Start Time Stop Time Status Last Admin (NS Flush) 2 ml UNSCH PRN IV FLUSH 05/04/17 17:15 Magnesium Oxide 800 mg 800 mg UNSCH PRN PO 05/04/17 18:00 Magnesium Sulfate 4 gm/Sodium Chloride 100 ml @ 50 mls/hr UNSCH PRN IV 05/04/17 18:00 Magnesium Sulfate 2 gm/Sodium Chloride 100 ml @ 50 mls/hr UNSCH PRN IV 05/04/17 18:00 Potassium Chloride 100 ml @ 50 mls/hr Q2H PRN IV 05/04/17 18:00 Potassium Chloride 100 ml @ 50 mls/hr Q2H PRN IV 05/04/17 18:00 Potassium Chloride 100 ml @ 50 mls/hr Q2H PRN IV 05/04/17 18:00 05/05/17 07:52 (KCl 40 Meq Premix Inj) 100 ml @ 25 mls/hr UNSCH PRN IV 05/04/17 18:00 (K-Phos) 2,000 mg Q4H PRN PO 05/04/17 18:00 Potassium Phosphate 2000 mg 2,000 mg UNSCH PRN PO/TUBE 05/04/17 18:00 Potassium Phosphate 30 mmol/ Sodium Chloride 260 ml @ 42 mls/hr UNSCH PRN IV 05/04/17 18:00 (Sodium Phosphate Inj/NS 250 ml Inj) 250 ml @ 42 mls/hr UNSCH PRN IV 05/04/17 18:00 05/05/17 08:09 (fentaNYL INJ) 50 mcg Q1H PRN IV PUSH 05/04/17 20:30 (Protonix Inj) 40 mg DAILY IV 05/05/17 09:00 05/05/17 08:08 Miscellaneous Information 1 Q361D XX 05/04/17 20:30 05/04/17 22:00 (Chlorhexidine 2% Cloth) 3 pack Taper DAILY@04 TOP 05/05/17 04:00 05/01/18 03:59 05/05/17 02:29 (Chlorhexidine 2% Cloth) 3 pack UNSCH PRN TOP 05/04/17 20:30 (Caryl-Colace) 1 tab BID PO 05/04/17 21:00 (Milk Of Magnesia Liq) 30 ml Q12H PRN PO 05/04/17 20:30 (Senokot) 17.2 mg Q12H PRN PO 05/04/17 20:30 (Dulcolax Supp) 10 mg DAILY PRN RECTAL 05/04/17 20:30 Lactulose 30 ml 30 ml DAILY PRN PO 05/04/17 20:30 (NS 250 ml Inj) 200 ml @ 0 mls/hr UNSCH PRN IV 05/04/17 22:45 (NS Flush) 5 ml UNSCH PRN IV FLUSH 05/04/17 22:45 (Zofran Inj) 4 mg UNSCH PRN IV 05/04/17 22:45 (Benadryl) 25 mg UNSCH PRN PO 05/04/17 22:45 Chlorhexidine Gluconate 15 ml 15 ml BID@08,20 MT 05/05/17 08:00 05/05/17 08:00 Propofol 100 ml @ 0 mls/hr TITRATE IV 05/04/17 23:00 05/05/17 07:54 Fentanyl Citrate 250 ml @ 0 mls/hr TITRATE IV 05/04/17 23:00 05/05/17 07:52 (Levophed-Dextrose Drip) 250 ml @ 0 mls/hr TITRATE IV 05/04/17 23:30 05/05/17 06:00 Family History not available. Social History not available. Physical Exam Vital Signs Vital Signs Date Time Temp Pulse Resp B/P Pulse Ox O2 Delivery O2 Flow Rate FiO2 05/05/17 09:00 71 24 109/57 100 101/50 05/05/17 08:19 99 50 05/05/17 08:00 100.3 78 24 100/53 100 98/49 05/05/17 08:00 50 05/05/17 08:00 79 05/05/17 07:00 98.9 82 24 103/57 100 97/54 05/05/17 06:00 50 05/05/17 06:00 84 105/57 95/53 05/05/17 06:00 98.9 84 24 105/57 99 95/53 05/05/17 05:00 98.9 93 25 130/63 100 123/64 05/05/17 04:00 98.9 79 32 103/57 100 97/52 05/05/17 03:31 100 50 05/05/17 03:00 99.2 76 34 101/56 100 97/53 05/05/17 02:00 99.2 90 34 95/54 100 92/51 05/05/17 01:30 50 05/05/17 01:26 100 50 05/05/17 01:00 99.2 95 34 98/54 100 95/52 05/05/17 00:53 100 70 05/05/17 00:00 99.2 100 34 103/55 100 99/54 05/05/17 00:00 70 05/05/17 00:00 100 111/59 99/54 05/04/17 23:00 98.3 114 34 115/61 99 93/51 05/04/17 23:00 114 05/04/17 22:11 100 70 05/04/17 22:00 98.3 108 27 119/57 100 112/58 05/04/17 22:00 100 05/04/17 21:15 100 100 05/04/17 21:00 98.3 119 31 83/56 97 05/04/17 20:15 98.3 114 34 90/54 98 05/04/17 19:11 16 97 Nasal Cannula 2 05/04/17 17:23 98.5 119 32 128/84 05/04/17 17:08 122 36 99 Room Air 7/7/17 16:59 121 36 144/92 98 Physical Exam GENERAL: intubated, not in distress. SKIN: Warm and dry. HEAD: Normocephalic. EYES: No scleral icterus. No injection or drainage. NECK: Supple, trachea midline. No JVD or lymphadenopathy. CARDIOVASCULAR: Regular rate and rhythm without murmurs, gallops, or rubs. RESPIRATORY: Breath sounds equal bilaterally. No accessory muscle use. GASTROINTESTINAL: Abdomen soft, non-tender, nondistended. MUSCULOSKELETAL: No cyanosis, or edema. BACK: Nontender without obvious deformity. No CVA tenderness. Laboratory Laboratory Tests Test 05/04/17 05/04/17 05/04/17 05/04/17 17:20 17:25 17:30 18:05 White Blood Count 16.9 Red Blood Count 4.93 Hemoglobin 16.0 Hematocrit 49.3 Mean Corpuscular Volume 100.1 Mean Corpuscular Hemoglobin 32.4 Mean Corpuscular Hemoglobin 32.4 Concent Red Cell Distribution Width 13.0 Platelet Count 548 Mean Platelet Volume 9.2 Neutrophils (%) (Auto) 81.3 Lymphocytes (%) (Auto) 6.8 Monocytes (%) (Auto) 11.3 Eosinophils (%) (Auto) 0.1 Basophils (%) (Auto) 0.5 Neutrophils # (Auto) 13.7 Lymphocytes # (Auto) 1.2 Monocytes # (Auto) 1.9 Eosinophils # (Auto) 0.0 Basophils # (Auto) 0.1 CBC Comment DIFF FINAL Differential Comment Prothrombin Time 11.3 Prothromb Time International 1.0 Ratio Activated Partial 20.6 Thromboplast Time Sodium Level 142 Potassium Level 3.6 Chloride Level 120 Carbon Dioxide Level 10.2 Anion Gap 12 Blood Urea Nitrogen 10 Creatinine 0.79 Estimat Glomerular Filtration 71 Rate Random Glucose 124 Serum Osmolality 327 Calcium Level 8.8 Total Bilirubin 0.4 Aspartate Amino Transf 71 (AST/SGOT) Alanine Aminotransferase 39 (ALT/SGPT) Alkaline Phosphatase 89 Total Creatine Kinase 106 Troponin I 0.08 Total Protein 9.2 Albumin 3.5 Acetaminophen Level LESS THAN 2.0 Ethyl Alcohol Level 99 Blood Gas Puncture Site RT RADIAL Blood Gas Patient Temperature 98.6 Blood Gas HCO3 8 Blood Gas Base Excess -15.7 Blood Gas Oxygen Saturation 97 Arterial Blood pH 7.49 Arterial Blood Partial 10 Pressure CO2 Arterial Blood Partial 118 Pressure O2 Arterial Blood Oxygen Content 23.0 Arterial Blood 1.1 Carboxyhemoglobin Arterial Blood Methemoglobin 0.4 Blood Gas Hemoglobin 16.8 Oxygen Delivery Device ROOM AIR Blood Gas Inspired Oxygen 21 Salicylates Level 112.6 Lactic Acid Level 4.8 Test 05/04/17 05/04/17 05/04/17 05/04/17 19:30 20:00 21:50 21:52 Urine Color YELLOW Urine Turbidity CLEAR Urine pH 6.0 7.0 Urine Specific [place] 1.015 Urine Protein 30 Urine Glucose (UA) NEG Urine Ketones 40 Urine Occult Blood NEG Urine Nitrite NEG Urine Bilirubin NEG Urine Urobilinogen LESS THAN 2.0 Urine Leukocyte Esterase NEG Urine WBC 3 Urine Squamous Epithelial <1 Cells Urine Hyaline Casts 4 Microscopic Urinalysis Comment CATH-CULT NOT IND Urine Opiates Screen NEG Urine Barbiturates Screen NEG Urine Amphetamines Screen NEG Urine Benzodiazepines Screen NEG Urine Cocaine Screen NEG Urine Cannabinoids Screen NEG Nasal Screen MRSA (PCR) MRSA NOT DETECTED Sodium Level 149 Potassium Level 3.4 Chloride Level 121 Carbon Dioxide Level 22.3 Anion Gap 6 Blood Urea Nitrogen 19 Creatinine 0.99 Estimat Glomerular Filtration 55 Rate Random Glucose 152 Lactic Acid Level 2.0 Calcium Level 7.2 Protein Corrected Calcium 7.4 Total Bilirubin 0.7 Aspartate Amino Transf 59 (AST/SGOT) Alanine Aminotransferase 30 (ALT/SGPT) Alkaline Phosphatase 68 Total Protein 6.7 Albumin 2.9 Salicylates Level 94.0 Test 05/04/17 05/04/17 05/05/17 05/05/17 21:54 23:00 00:20 00:28 Blood Gas Puncture Site ART LINE ART LINE Blood Gas Patient Temperature 98.6 98.6 Blood Gas HCO3 20 24 Blood Gas Base Excess -2.4 1.9 Blood Gas Oxygen Saturation 98 98 Arterial Blood pH 7.50 7.62 Arterial Blood Partial 26 23 Pressure CO2 Arterial Blood Partial 516 333 Pressure O2 Arterial Blood Oxygen Content 19.4 19.5 Arterial Blood 0.9 1.2 Carboxyhemoglobin Arterial Blood Methemoglobin 1.2 1.1 Blood Gas Hemoglobin 13.1 13.6 Oxygen Delivery Device VENTILATOR VENT Blood Gas Ventilator Setting SEE COMMENTS SEE COMMENTS Blood Gas Inspired Oxygen 100 70 Urine pH 6.0 5.5 Test 05/05/17 05/05/17 05/05/17 05/05/17 00:50 01:10 02:10 02:15 Salicylates Level 38.4 23.2 Urine pH 6.5 6.5 Test 05/05/17 05/05/17 05/05/17 05/05/17 02:44 03:00 03:50 04:15 Blood Gas Puncture Site ART LINE ART LINE Blood Gas Patient Temperature 98.6 98.6 Blood Gas HCO3 25 26 Blood Gas Base Excess 3.8 4.7 Blood Gas Oxygen Saturation 98 98 Arterial Blood pH 7.70 7.67 Arterial Blood Partial 20 22 Pressure CO2 Arterial Blood Partial 234 234 Pressure O2 Arterial Blood Oxygen Content 21.1 17.0 Arterial Blood 1.3 1.4 Carboxyhemoglobin Arterial Blood Methemoglobin 1.1 1.1 Blood Gas Hemoglobin 15.0 12.0 Oxygen Delivery Device VENT VENTILATOR Blood Gas Ventilator Setting SEE COMMENTS COMMENT Blood Gas Inspired Oxygen 50 50 Urine pH 6.0 White Blood Count 14.0 Red Blood Count 3.68 Hemoglobin 12.3 Hematocrit 35.1 Mean Corpuscular Volume 95.4 Mean Corpuscular Hemoglobin 33.5 Mean Corpuscular Hemoglobin 35.1 Concent Red Cell Distribution Width 13.1 Platelet Count 411 Mean Platelet Volume 9.2 Neutrophils (%) (Auto) 73.9 Lymphocytes (%) (Auto) 10.0 Monocytes (%) (Auto) 15.7 Eosinophils (%) (Auto) 0.0 Basophils (%) (Auto) 0.4 Neutrophils # (Auto) 10.4 Lymphocytes # (Auto) 1.4 Monocytes # (Auto) 2.2 Eosinophils # (Auto) 0.0 Basophils # (Auto) 0.1 CBC Comment AUTO DIFF Differential Comment AUTO DIFF CONFIRMED Prothrombin Time 13.7 Prothromb Time International 1.2 Ratio Sodium Level 140 Potassium Level 2.7 Chloride Level 102 Carbon Dioxide Level 28.4 Anion Gap 10 Blood Urea Nitrogen 6 Creatinine 0.56 Estimat Glomerular Filtration 106 Rate Random Glucose 171 Lactic Acid Level 2.3 Calcium Level 7.5 Phosphorus Level 1.0 Magnesium Level 1.5 Total Bilirubin 0.7 Aspartate Amino Transf 56 (AST/SGOT) Alanine Aminotransferase 29 (ALT/SGPT) Alkaline Phosphatase 63 Total Protein 6.1 Albumin 2.7 Salicylates Level 21.5 Test 05/05/17 05/05/17 05/05/17 05/05/17 05:55 06:30 07:45 09:15 Blood Gas Puncture Site ART LINE ART LINE Blood Gas Patient Temperature 98.6 98.6 Blood Gas HCO3 27 26 Blood Gas Base Excess 5.1 4.2 Blood Gas Oxygen Saturation 98 98 Arterial Blood pH 7.66 7.65 Arterial Blood Partial 23 23 Pressure CO2 Arterial Blood Partial 224 243 Pressure O2 Arterial Blood Oxygen Content 21.3 17.1 Arterial Blood 1.4 1.4 Carboxyhemoglobin Arterial Blood Methemoglobin 1.2 1.1 Blood Gas Hemoglobin 15.2 12.1 Oxygen Delivery Device VENT VENTILATOR Blood Gas Ventilator Setting SEE COMMENTS PRVC/AC 500/24 Blood Gas Inspired Oxygen 50 50 Urine pH 6.0 Salicylates Level 20.7 20.2 Date/Time Procedure Status Source Growth 05/04/17 18:05 Aerobic Blood Culture Received Blood Peripheral Pending 05/04/17 18:05 Anaerobic Blood Culture Received Blood Peripheral Pending Result Diagram: 05/05/17 0350 05/05/17 0350 Assessment and Plan Problem List: (1) Drug overdose, intentional Plan: dialyzed emergently yesterday. Salicylate level has decreased to less than 30. No need for urine alkalinization at this time. Discussed with Dr. Kern. No indication for dialysis again. Vascath can be removed. (2) Hypokalemia Plan: Replace. Alkalosis contributing. Assessment and Plan Thanks for the consult. I will sign off at this time. Problem Qualifiers (1) Drug overdose, intentional: Qualified Code: T50.902A - Drug overdose, intentional, initial encounter Troy Anderson MD May 05, 2017 10:22
[2017-05-05] MEDS: SODIUM CHLOR 0.9% 1000 ML INJ 1,000 ML IV SCH ×2 (12:13→17:36)
--- NOTE | 2017-05-05 15:16 | PD.PSY.CON ---
Provisional Diagnosis Admission Date May 04, 2017 at 18:49 Crystal I. Her depressive disorder single episode severe without psychosis of 32.2 History of Present Illness Service Psychiatry Consult Requested By Attending Donnell Reason for Consult Lali act Primary Care Physician Non-Staff HPI Patient is a 71-year-old white female made to the hospital after severe salicylate overdose in a suicide attempt pancreatic by the [facility] office it is 05/04/17 at 4:18 PM document reviewed and agreed with basically stating that morals squad police officer observed Kamilla in unstable condition. Jossy had left suicide notes on the front door stating she wanted to hurt herself and she didn't want to live anymore. Movement advised deputy she had not had food or water in some time as well as laying in bed for weeks. Jossy advise deputy she didn't want to live anymore and wasn't a stroke wanting to commit suicide cause she never wanted to call 911 with emergency line beside her was a muscle relaxer Kamilla admitted ingesting up and never said what was in it. Patient seen screened in ED urine toxicology soda critically elevated level of salicylate necessitating rapid treatment and intubation. She is sesamoid extubated herself. Patient seen today by me with her friend in her room was apart returning health care surrogate. Lives alone multiple acre area has various animals as pets including horses and dogs. She states she started being lonely living alone that she wants to . She stated that if her analgesia 10 [place] take the suicide pill. She states her sleep is undisturbed though not very efficient, she is not eating as much as first event. Of time and has been no weight loss, she denies voices visions with this , however there is a strong history of alcohol use with this lady. She states she has further significant amount of time drinking wine every day. Of interest patient was hospitalized for an overdose of alcohol and perhaps other drugs at [facility] the the end of March. She was transferred to the [facility] stayed there about 3 days was discharged on May 01 to be admitted as mentioned on May 04. At the present time patient continues to meet criteria for involuntary psychiatric hospitalization. We will continue the [facility] act. As okay by psych for discharge transfer to the psychiatric unit when she is clear and stable please notify me to arrange. At the present time we'll start her on Lexapro 10 mg daily Review of Systems Constitutional: DENIES: Diaphoretic episodes, Fatigue, Fever, Weight gain, Weight loss, Chills, Dizziness, Change in appetite, Night Sweats Endocrine: DENIES: Abnorml menstrual pattern, Heat/cold intolerance, Polydipsia , Polyuria, Polyphagia Eyes: DENIES: Blurred vision, Diplopia, Eye inflammation, Eye pain, Vision loss , Photosensitivity, Double Vision Ears, nose, mouth, throat: DENIES: Tinnitus, Hearing loss, Vertigo, Nasal discharge, Oral lesions, Throat pain, Hoarseness, Ear Pain, Running Nose, Epistaxis, Sinus Pain, Toothache, Odynophagia Respiratory: DENIES: Apneas, Cough, Snoring, Wheezing, Hemoptysis, Sputum production, Shortness of breath Cardiovascular: DENIES: Chest pain, Palpitations, Syncope, Dyspnea on Exertion , PND, Lower Extremity Edema, Orthopnea, Claudication Gastrointestinal: DENIES: Abdominal pain, Black stools, Bloody stools, Constipation, Diarrhea, Nausea, Vomiting, Difficulty Swallowing, Anorexia Genitourinary: DENIES: Abnormal vaginal bleeding, Dysmenorrhea, Dyspareunia, Sexual dysfunction, Urinary frequency, Urinary incontinence, Urgency, Hematuria , Dysuria, Nocturia, Vaginal discharge Musculoskeletal: DENIES: Joint pain, Muscle aches, Stiffness, Joint Swelling, Back pain, Neck pain Integumentary: DENIES: Abnormal pigmentation, Pruritus, Rash, Nail changes, Breast masses, Breast skin changes, Nipple discharge Hematologic/lymphatic: DENIES: Bruising, Lymphadenopathy Immunologic/allergic: DENIES: Eczema, Urticaria Neurologic: DENIES: Abnormal gait, Headache, Localized weakness, Paresthesias, Seizures, Speech Problems, Tremor, Poor Balance Psychiatric: COMPLAINS OF: Depression, Suicidal Ideation Past Family Social History Coded Allergies: Macrobid (Verified Allergy, Intermediate, UPSET STOMACH, 04/13/17) Penicillin (Verified Allergy, Intermediate, HIVES, 04/13/17) Past Medical History C MedSurg Discontinued Reported Medications Multiple Vitamin 1 Tab1 Tab PO DAILY Ref 0 03/30/17 Levothyroxine 50 Mcg Tab50 Mcg PO DAILY #30 TAB Ref 0 12/02/16 Fluticasone Nasal [place] (Flonase Nasal [place])50 Mcg/Act Spray50 Mcg EACH NARE BID #1 BOTTLE Ref 0 12/02/16 Current Medications Medications (Trade) Dose Ordered Sig/Deepak Route Start Time Stop Time Status Last Admin (NS Flush) 2 ml UNSCH PRN IV FLUSH 05/04/17 17:15 Magnesium Oxide 800 mg 800 mg UNSCH PRN PO 05/04/17 18:00 Magnesium Sulfate 4 gm/Sodium Chloride 100 ml @ 50 mls/hr UNSCH PRN IV 05/04/17 18:00 Magnesium Sulfate 2 gm/Sodium Chloride 100 ml @ 50 mls/hr UNSCH PRN IV 05/04/17 18:00 Potassium Chloride 100 ml @ 50 mls/hr Q2H PRN IV 05/04/17 18:00 Potassium Chloride 100 ml @ 50 mls/hr Q2H PRN IV 05/04/17 18:00 Potassium Chloride 100 ml @ 50 mls/hr Q2H PRN IV 05/04/17 18:00 05/05/17 07:52 (KCl 40 Meq Premix Inj) 100 ml @ 25 mls/hr UNSCH PRN IV 05/04/17 18:00 (K-Phos) 2,000 mg Q4H PRN PO 05/04/17 18:00 Potassium Phosphate 2000 mg 2,000 mg UNSCH PRN PO/TUBE 05/04/17 18:00 Potassium Phosphate 30 mmol/ Sodium Chloride 260 ml @ 42 mls/hr UNSCH PRN IV 05/04/17 18:00 (Sodium Phosphate Inj/NS 250 ml Inj) 250 ml @ 42 mls/hr UNSCH PRN IV 05/04/17 18:00 05/05/17 08:09 Miscellaneous Information 1 Q361D XX 05/04/17 20:30 05/04/17 22:00 (Caryl-Colace) 1 tab BID PO 05/04/17 21:00 (Milk Of Magnesia Liq) 30 ml Q12H PRN PO 05/04/17 20:30 (Senokot) 17.2 mg Q12H PRN PO 05/04/17 20:30 (Dulcolax Supp) 10 mg DAILY PRN RECTAL 05/04/17 20:30 Lactulose 30 ml 30 ml DAILY PRN PO 05/04/17 20:30 (NS 250 ml Inj) 200 ml @ 0 mls/hr UNSCH PRN IV 05/04/17 22:45 (NS Flush) 5 ml UNSCH PRN IV FLUSH 05/04/17 22:45 Ondansetron HCl 4 mg 4 mg UNSCH PRN IV 05/04/17 22:45 Norepinephrine Bitartrate 250 ml @ 0 mls/hr TITRATE IV 05/04/17 23:30 05/05/17 06:00 (NS 1000 ml Inj) 1,000 ml @ 125 mls/hr Q8H IV 05/05/17 10:00 05/05/17 12:13 Family History Patient denies mental health history and family Social History Patient a number of years ago is living by herself has no children Patient's Strengths (min. 2) Patient verbal intelligent atelectasis health care was also quite feisty Physical Exam Please see med [facility] Vital Signs Vital Signs Date Time Temp Pulse Resp B/P Pulse Ox O2 Delivery O2 Flow Rate FiO2 05/05/17 14:00 88 05/05/17 12:00 98.3 20 92/52 99 76/46 05/05/17 11:35 2 05/05/17 08:19 50 05/04/17 19:11 Nasal Cannula I/O 05/04/17 05/04/17 05/05/17 08:00 16:00 00:00 Intake Total 3539 ml Output Total 495 ml Balance 3044 ml Mental Status Examination Alert oriented thin slice slender white female appears somewhat younger than stated age she is calm cooperative is somewhat guarded. Did have her healthcare surrogate beside her during this Appearance Clean the Speech: Unremarkable Orientation: x3 Memory: Unremarkable Thought Process: Logical Thought Content: Unremarkable Language Fair Fund of Knowledge Fair Hallucination Type: None Attention and Concentration: Good Suicidal Ideation: Yes (patient would take the suicide pill if offered as long as her animals were cared for) Previous Suicide Attempts: Yes (middle of April 14) Homicidal Ideation: No Previous Homicide Attempts: No Insight: Poor Judgment: Poor Affect: Other (decreased range intensity) Mood: Sad Motor Activity: Normal gait Assessment & Plan Problem List: (1) Severe major depression, single episode, without psychotic features ICD Code: F32.2 Assessment & Plan Estimated LOS: days patient does meet criteria for inpatient psychiatric stay in the [facility] act. Once patient is medically cleared please contact me help arrange transfer to the psychiatric unit we'll continue the [facility] act at this time start the patient on Lexapro 10 mg daily Discharge Planning See above Request HC Surrog/Guard Advoc?: No Nestor Mccoy MD May 05, 2017 15:16
[2017-05-05] MEDS: ESCITALOPRAM OXALATE 10 MG TAB PO SCH (16:07)
--- NOTE | 2017-05-05 16:33 | EKG ---
Date Performed: 05/04/2017 Time Performed: 17:04:59 PTAGE: 71 years EKG: SINUS TACHYCARDIA MARKED LEFT AXIS DEVIATION SEPTAL MYOCARDIAL INFARCTION ABNORMAL ECG Comp ared to the PREVIOUS TRACING from 03/30/17, rate has increased DOCTOR: Daniel Warner Interpretating Date/Time 05/05/2017 16:32:08
[2017-05-05] MEDS: DIAZEPAM 10 MG TAB PO PRN (18:04)
[2017-05-06] VITALS (16 sets, daily range): BP systolic 123–157; BP diastolic 58–97; PULSE 82–109; RESP 0–32; TEMP 98.3–99.1; O2SAT 90–99
[2017-05-06] MEDS: DIAZEPAM 10 MG TAB PO PRN ×2 (02:30→10:17)
[2017-05-06] MEDS: SODIUM CHLOR 0.9% 1000 ML INJ 1,000 ML IV SCH ×2 (03:26→10:00)
[2017-05-06] MEDS: NOREPINEPHRINE-DEXTROSE DRIP 250 ML IV SCH (03:27)
[2017-05-06] MEDS: RESP: ALBUTEROL 2.5 MG/IPRATROPIUM 0.5 MG NEB (SCH) INH ×3 (03:32→20:53)
[2017-05-06 06:37] LABS: HEMATOCRIT 29.1 % (35.0-46.0); MEAN CELL VOLUME 99.2 FL (80.0-100.0); MEAN CORPUSCULAR HEMOGLOBIN 33.6 PG (27.0-34.0); MEAN CORPUSCULAR HGB CONC 33.9 % (32.0-36.0); PLATELET COUNT 218 TH/MM3 (150-450); RED BLOOD COUNT 2.93 MIL/MM3 (4.00-5.30); RED CELL DISTRIBUTION WIDTH 13.7 % (11.6-17.2); REVIEW FLAG FINAL; WHITE BLOOD COUNT 8.8 TH/MM3 (4.0-11.0)
[2017-05-06 06:58] LABS: BICARBONATE 26.8 MEQ/L (21.0-32.0)
[2017-05-06 07:04] LABS: POTASSIUM 2.6 MEQ/L (3.5-5.1)
[2017-05-06] MEDS: POTASSIUM CHLOR 40 MEQ PREMIX 100 ML IV PRN ×2 (08:00→10:17)
[2017-05-06] MEDS: DOCUSATE SODIUM 50 MG/SENNA 8.6 MG TAB PO SCH ×2 (08:00→21:20)
[2017-05-06] MEDS: ESCITALOPRAM OXALATE 10 MG TAB PO SCH (08:00)
--- NOTE | 2017-05-06 10:45 | HHI.CCPN ---
Subjective Remarks/Hospital Course Hospital Course: Intentional drug OD woth ASA level > 110 and severe symptoms of toxicity. Subjective: 05/05: required emergent hemodialysis overnight for severe life-threatening ASA toxicity. this morning, levels are downtrending x 3. urine alkalinization continues. lactate is clearing, but delayed clearance which is likely a result of poor hepatic clearance, age, and critical illness, though this is a poor prognostic factor in her survival. I discussed her care with poison control, and no need to continue alkalinization. still minimally responsive. 05/06: weaning off norepinephrine. patient tells me today that "I wish I weren't doing so well. I don't have anything left to live for, and my life is too hard as it is." uop adequate. poison control requesting 1 additional ASA level. Cr slightly up from yesterday. Objective Vital Signs Date Time Temp Pulse Resp B/P Pulse Ox O2 Delivery O2 Flow Rate FiO2 05/06/17 08:00 99 05/06/17 08:00 98.8 20 154/72 92 141/75 05/06/17 07:34 Nasal Cannula 4.00 05/05/17 08:19 50 Intake and Output 05/05/17 05/05/17 05/06/17 08:00 16:00 00:00 Intake Total 953 ml 848 ml 1150 ml Output Total 105 ml 200 ml 350 ml Balance 848 ml 648 ml 800 ml Result Diagram: 05/06/17 0510 05/06/17 0510 Objective Remarks Gen: elderly female, lying in bed, no acute distress. Head: Atraumatic.mucous membranes moist Neck: trachea midline. no jvd. right ij tlc clean dry intact. Lungs: 2L o2 by nc. equal chest rise. unlabored. Heart: normal rate, regular rhythm. sinus by tele. Abdomen: No guarding, soft. Extremities: Dry, warm. right femoral vas cath clean dry intact. Neuro: RASS 0. fc x 4. A/P Assessment and Plan Assessment: 71yF with intentional salicylate overdose and severe life- threatening toxicity now s/p emergent HD. Medically cleared from ASA. remains on vasopressors, although clinically starting to improve. Continue to monitor uop. wean o2 by nc. wean off vasopressors. psych will admit her once medically cleared. Plan: Salicylate toxicity -- per poison control, 1 additional level today. -- monitor clinically Acute hypoxic respiratory failure- resolved. Atelectasis -- wean o2 by NC for goal spo2 > 92% -- PT, OOB Acute severe toxic encephalopathy- resolved. Lactic Acidosis- resolved. Metabolic Alkalosis- resolved. Hypovolemic Shock, possible Distributive Shock- resolving -- wean levo as tolerated for map > 65. -- mivf NS @ 125 cc/hr. Acute protein calorie malnutrition- moderate, persistent. -- regular diet as tolerated. -- add supplemental shakes Severe Hypokalemia- persistent. -- aggressive KCl replacement. Suicidal Ideation with attempt -- psych consult in place -- [facility] Act SCDs, SQH for ppx. Lines: -- 05/04 right femoral art line, will d/c today -- 05/04 right femoral vas cath- d/c today -- 05/04 left SC TLC- keep while on vasopressors. Dispo: remain in the ICU while on vasopressors. Duran Kern MD May 06, 2017 10:45
[2017-05-06] MEDS ORDERED: LORazepam 2 MG/ML VIAL ONE (12:45)
[2017-05-06] MEDS ORDERED: FUROSEMIDE 100 MG/10 ML VIAL IV PUSH ONE ×2 (13:00→19:30)
--- NOTE | 2017-05-06 13:23 | RADRPT ---
EXAM DATE/TIME: 05/06/2017 12:57 [place] COMPARISON: CHEST SINGLE AP, May 04, 2017, 22:04. INDICATIONS : Short of breath. MEDICAL HISTORY : Cardiovascular disease. Hepatitis C. SURGICAL HISTORY : None. ENCOUNTER: Subsequent ACUITY: 2 days PAIN SCORE: 0/10 LOCATION: Bilateral chest FINDINGS: A single view of the chest demonstrates diffuse interstitial prominence. There are bibasilar consolid ations with probable associated effusions. Spectral findings are characteristic of congestive heart f ailure or volume overload. Heart size is borderline prominent. Left subclavian central venous cathete r projects over the central venous system. Dextroscoliosis of the dorsal spine. Osseous structures ar e otherwise intact. CONCLUSION: Vascular congestion or volume overload with bibasilar areas of consolidation/effusion. John Montemayor MD on May 06, 2017 at 13:20 Board Certified Radiologist. This report was verified electronically.
[2017-05-06] MEDS ORDERED: LORazepam 2 MG/ML VIAL IV PUSH ONE (13:45)
[2017-05-06] MEDS ORDERED: HALOPERIDOL LACTATE 5 MG/ML AMP IV PRN (14:45)
[2017-05-06] MEDS ORDERED: POTASSIUM CHLOR 40 MEQ PREMIX 100 ML IV ONE (20:00)
[2017-05-07] VITALS (17 sets, daily range): BP systolic 92–159; BP diastolic 55–104; PULSE 79–104; RESP 18–33; TEMP 98–98.7; O2SAT 92–100
[2017-05-07] MEDS: DIAZEPAM 10 MG TAB PO PRN (03:01)
[2017-05-07] MEDS: RESP: ALBUTEROL 2.5 MG/IPRATROPIUM 0.5 MG NEB (SCH) INH ×4 (04:08→20:26)
[2017-05-07 05:34] LABS: HEMATOCRIT 34.7 % (35.0-46.0); MEAN CELL VOLUME 99.1 FL (80.0-100.0); MEAN CORPUSCULAR HGB CONC 33.3 % (32.0-36.0); PLATELET COUNT 221 TH/MM3 (150-450); RED CELL DISTRIBUTION WIDTH 13.6 % (11.6-17.2); REVIEW FLAG FINAL; WHITE BLOOD COUNT 8.6 TH/MM3 (4.0-11.0)
[2017-05-07 05:56] LABS: BICARBONATE 30.3 MEQ/L (21.0-32.0); POTASSIUM 3.4 MEQ/L (3.5-5.1)
[2017-05-07] MEDS: DOCUSATE SODIUM 50 MG/SENNA 8.6 MG TAB PO SCH ×2 (08:52→20:47)
[2017-05-07] MEDS: ESCITALOPRAM OXALATE 10 MG TAB PO SCH (08:52)
[2017-05-07] MEDS ORDERED: FUROSEMIDE 40 MG/4 ML VIAL IV PUSH ONE (11:15)
--- NOTE | 2017-05-07 16:48 | HHI.CCPN ---
Subjective Remarks/Hospital Course Hospital Course: Intentional drug OD with ASA level > 110 and severe symptoms of toxicity. Subjective: 05/05: required emergent hemodialysis overnight for severe life-threatening ASA toxicity. this morning, levels are downtrending x 3. urine alkalinization continues. lactate is clearing, but delayed clearance which is likely a result of poor hepatic clearance, age, and critical illness, though this is a poor prognostic factor in her survival. I discussed her care with poison control, and no need to continue alkalinization. still minimally responsive. 05/06: weaning off norepinephrine. patient tells me today that "I wish I weren't doing so well. I don't have anything left to live for, and my life is too hard as it is." uop adequate. poison control requesting 1 additional ASA level. Cr slightly up from yesterday. 05/07: placed on BiPAP yesterday for worsening oxygenation and cxr which demonstrated pulmonary edema. given lasix 80mg iv x 2 yesterday and weaned off of BiPAP. this morning the patient tells me she thinks she wants to live now and wants to spend more time with her horses. Objective Vital Signs Date Time Temp Pulse Resp B/P Pulse Ox O2 Delivery O2 Flow Rate FiO2 05/07/17 14:00 90 05/07/17 12:00 98.3 25 111/59 96 05/07/17 08:36 Nasal Cannula 4.00 05/07/17 07:00 50 Intake and Output 05/06/17 05/06/17 05/06/17 07:59 15:59 23:59 Intake Total 1073 ml 874 ml 100 ml Output Total 2100 ml 775 ml Balance 1073 ml -1226 ml -675 ml Result Diagram: 05/07/17 0500 05/07/17 1532 Objective Remarks Gen: elderly female, lying in bed, no acute distress. Head: Atraumatic.mucous membranes moist Neck: trachea midline. no jvd. Lungs: 2L o2 by nc. equal chest rise. unlabored. bibasilar crackles still present. Heart: normal rate, regular rhythm. sinus by tele. Abdomen: No guarding, soft. Extremities: Dry, warm. Neuro: RASS 0. fc x 4. A/P Assessment and Plan Assessment: 71yF with intentional salicylate overdose and severe life- threatening toxicity now s/p emergent HD. Medically cleared from ASA. remains with volume overload on o2 by NC. continue forced diuresis today. d/c gissel. transfer to floor. consult hospitalist. Plan: Salicylate toxicity -- per poison control, cleared. -- monitor clinically Acute hypoxic respiratory failure- resolved. Atelectasis Acute intravascular volume overload -- wean o2 by NC for goal spo2 > 92% -- PT, OOB -- lasix 40mg iv x 1. goal -1L Acute severe toxic encephalopathy- resolved. Lactic Acidosis- resolved. Metabolic Alkalosis- resolved. Acute protein calorie malnutrition- moderate, persistent. -- regular diet as tolerated. -- supplemental shakes Severe Hypokalemia- persistent. -- aggressive KCl replacement. Suicidal Ideation with attempt -- psych consult in place -- Escalera Act SCDs, SQ for ppx. Lines: -- Gissel, we will remove. Dispo: transfer to floor with hospitalist following. Duran Kern MD May 07, 2017 16:48 Dispo: remain in the ICU while on vasopressors. Duran Kern MD May 07, 2017 16:48
[2017-05-08] MEDS ORDERED: LISI-519 PO (16:52)
== END 2017-05-07 21:25 | DRG 917 ==
LOC: NEPE 16:55 → NEDA 18:49 → HIMN 20:05
PROVIDERS: ADMIT Internal Medicine Critical Care Medicine; ATTEND Internal Medicine Critical Care Medicine
PROC: 5A1D00Z (ICD-10-PCS; 2017-05-04)
PROC: 0BH17EZ Insertion of Endotracheal Airway into Trachea, Via Natural or Artificial Opening (ICD-10-PCS; principal; 2017-05-05)
PROC: 5A1945Z Respiratory Ventilation, 24-96 Consecutive Hours (ICD-10-PCS; 2017-05-05)
PROC: 05H633Z Insertion of Infusion Device into Left Subclavian Vein, Percutaneous Approach (ICD-10-PCS; 2017-05-05)
PROC: 04HK33Z Insertion of Infusion Device into Right Femoral Artery, Percutaneous Approach (ICD-10-PCS; 2017-05-05)
PROC: 06HM33Z Insertion of Infusion Device into Right Femoral Vein, Percutaneous Approach (ICD-10-PCS; 2017-05-05)
PROC: B54BZZA Ultrasonography of Right Lower Extremity Veins, Guidance (ICD-10-PCS; 2017-05-05)
PROC: 5A09357 Assistance with Respiratory Ventilation, Less than 24 Consecutive Hours, Continuous Positive Airway Pressure (ICD-10-PCS; 2017-05-06)
DX: T39.012A Poisoning by aspirin, intentional self-harm, initial encounter (principal); J96.01 Acute respiratory failure with hypoxia; R57.1 Hypovolemic shock; G92 Toxic encephalopathy; E87.4 Mixed disorder of acid-base balance; E44.0 Moderate protein-calorie malnutrition; Z68.1 Body mass index [BMI] 19.9 or less, adult; I10 Essential (primary) hypertension; E78.00 Pure hypercholesterolemia, unspecified; K21.9 Gastro-esophageal reflux disease without esophagitis; B19.20 Unspecified viral hepatitis C without hepatic coma; M19.90 Unspecified osteoarthritis, unspecified site; E87.6 Hypokalemia; F10.129 Alcohol abuse with intoxication, unspecified; Z85.828 Personal history of other malignant neoplasm of skin
CPT/HCPCS: 31500; 36556; 36600; 71010; 71250; 76937; 80048; 80053; 80074; 80307; 81001; 81003; 82533; 82550; 82805; 82948; 83605; 83735; 83930; 84100; 84132; 84155; 84484; 85025; 85027; 85610; 85730; 87040; 87641; 90935; 93005; 94002; 94003; 94150; 94640; 94664; 94667; 94668; 96374; C9113; J1580; J1644; J1940; J2060; J2250; J2405; J3010; J3480; J7030; J7050; J7070; P9045

== ENCOUNTER 2017-05-07 21:35 | Inpatient (IN) | payer OTHER, MEDICARE ==
[~2017-05-07] VITALS: Ht 154.9 cm; Wt 48.0 kg
[2017-05-07 21:30] VITALS: BP 149/54; PULSE 98; RESP 16; TEMP 97.6; O2SAT 93
[2017-05-07] MEDS ORDERED: MAGNESIUM HYDROXIDE SUSP 30 ML CUP PO PRN (22:15)
[2017-05-07] MEDS ORDERED: ACETAMINOPHEN 325 MG TAB PO PRN (22:15)
[2017-05-07] MEDS ORDERED: diphenhydrAMINE HCL 50 MG CAP PO PRN (22:15)
[2017-05-07] MEDS ORDERED: LORazepam 2 MG/ML VIAL IV PUSH PRN ×4 (22:15)
[2017-05-07] MEDS ORDERED: diphenhydrAMINE HCL 50 MG/ML VIAL IM PRN (22:15)
[2017-05-07] MEDS ORDERED: LORazepam 2 MG TAB PO PRN (22:15)
[2017-05-07] MEDS ORDERED: hydrOXYzine HCL 50 MG TAB PO PRN (22:15)
[2017-05-07] MEDS ORDERED: LORazepam 1 MG TAB PO PRN (22:15)
[2017-05-07] MEDS ORDERED: FLUMAZENIL 0.5 MG/5 ML VIAL IV PUSH PRN (22:15)
[2017-05-07] MEDS ORDERED: ALUMINUM/MAGNESIUM/SIMETH 30 ML CUP PO PRN (22:15)
[2017-05-08 01:02] VITALS: BP 121/75; PULSE 88; RESP 18; TEMP 98.2; O2SAT 97
[2017-05-08] MEDS ORDERED: cloNIDine HCL 0.1 MG TAB PO PRN (05:30)
[2017-05-08] MEDS ORDERED: RESP: ALBUTEROL 2.5 MG/3 ML NEB (PRN) NEB (05:30)
[2017-05-08 06:46] VITALS: BP 122/74; PULSE 80; RESP 18; TEMP 97.5; O2SAT 96
[2017-05-08] MEDS: THIAMINE HCL 100 MG TAB PO SCH (08:52)
[2017-05-08] MEDS: FOLIC ACID 1 MG TAB PO SCH (08:52)
[2017-05-08] MEDS: NICOTINE 21 MG/24 HR PATCH T-DERMAL SCH ×3 (08:52→09:00)
[2017-05-08] MEDS: REMOVE OLD PATCH T-DERMAL SCH (08:58)
--- NOTE | 2017-05-08 09:02 | HHI.HP ---
Provisional Diagnosis Admission Date May 07, 2017 at 21:35 [place] I. Major depressive disorder single episode severe without psychosis F 32.2 alcohol abuse with intoxication F10 0.129 Certification of Person's Competence To Provide Express and Informed Consent I have personally examined Kamilla Mckinley , a person being served at [facility] on, May 08, 2017 08:44. Express and informed consent means consent voluntarily given in writing, by a competent person, after sufficient explanation and disclosure of the subject matter involved to enable the person to make a knowing and willful decision without any element of force, fraud, deceit, duress, or other form of constraint or coercion. This person is 18 years of age or older, is not now known to be incompetent to consent to treatment with a guardian advocate, and does not have a health care surrogate or proxy currently making medical treatment decisions. I have found this person to be one of the following: [] Competent to provide express and informed consent, as defined above, for voluntary admission to this facility and is competent to provide express and informed consent for treatment. He/she has the consistent capacity to make well reasoned, willful, and knowing decisions concerning his or her medical or mental health treatment. The person fully and consistently understands the purpose of the admission for examination/placement and is fully capable of personally exercising all rights assured [place] Incompetent to provide express and informed consent to voluntary admission, and this is incompetent to provide express and informed consent to treatment. The person must be transferred to involuntary status and a petition for a guardian advocate filed with the Circuit Court. [xx] Refusing to provide express and informed consent to voluntary admission but is competent to provide express and informed consent for treatment. The person must be discharged or transferred to involuntary status. Form shall be completed within 24 hours of a person's arrival at the receiving facility and filed in the clinical record of each person: 1. Admitted on a voluntary basis 2. Permitted to provide express and informed consent to his/her own treatment 3. Allowed to transfer from involuntary to voluntary status 4. Prior to permitting a person to consent to his or her own treatment after having been previously found incompetent to consent to treatment. History of Present Illness Capacity: Lacks Capacity (patient was capacity sign for admission, patient has capacity to sign for medications and treatment) HPI Patient is 71-year-old white female initially admitted to [facility] on to 05/07/17 under visit [id number] for salicylate overdose suicide attempt labs drawn on showed blood alcohol level of 99 negative toxicology but a salicylate level of 112.6 since starting hemodialysis patient seen by me in consultation on 05/05/17 recommended transient of the psychiatric unit when medically clear and stable it appears yesterday she was cleared from the intensive care unit from medical floor she was transferred down here in its stead. Of interest patient also seen in our ED on 03/30/17 under visit [id number] at that visit to the ED patient's blood alcohol level was 163. She was treated and discharged home. Towards the middle of March patient was seen at [facility] and transferred to the [facility] after an overdose she was released from the [facility] but appears to be 01 May. Patient did state alcohol use to 01 May and when she was admitted here on 05/04/17. At the present time patient laying quietly in her bed on 2500 continues nasal oxygen noted to his recent chest x-ray showing some pulmonary edema. Our MedPsych unit is open to this morning patient is to be transferred to that unit for more intensive medical care along with her mental health care. In any event at the present time patient is somewhat vague about her suicidality. It appears she is financially well off this [place] [address] [place] [address] and has nurse animals she cares for her including horses dogs and cats. It appears this is becoming more and more overwhelming for her. Related to the depression and loneliness in the suicide attempts along with the significant alcohol use. I did start her on Lexapro after consultation on 05/05. In any event at this time patient continues to meet criteria for involuntary psychiatric hospitalization I will do first opinion requests second opinion. Patient be transferred to [facility] and transferred to Dr. Dooley's service at that point in time Review of Systems Constitutional: COMPLAINS OF: Fatigue, Weight loss Endocrine: DENIES: Abnorml menstrual pattern, Heat/cold intolerance, Polydipsia , Polyuria, Polyphagia Eyes: DENIES: Blurred vision, Diplopia, Eye inflammation, Eye pain, Vision loss , Photosensitivity, Double Vision Respiratory: COMPLAINS OF: Shortness of breath Cardiovascular: DENIES: Chest pain, Palpitations, Syncope, Dyspnea on Exertion , PND, Lower Extremity Edema, Orthopnea, Claudication Gastrointestinal: DENIES: Abdominal pain, Black stools, Bloody stools, Constipation, Diarrhea, Nausea, Vomiting, Difficulty Swallowing, Anorexia Genitourinary: DENIES: Abnormal vaginal bleeding, Dysmenorrhea, Dyspareunia, Sexual dysfunction, Urinary frequency, Urinary incontinence, Urgency, Hematuria , Dysuria, Nocturia, Vaginal discharge Musculoskeletal: DENIES: Joint pain, Muscle aches, Stiffness, Joint Swelling, Back pain, Neck pain Integumentary: DENIES: Abnormal pigmentation, Pruritus, Rash, Nail changes, Breast masses, Breast skin changes, Nipple discharge Hematologic/lymphatic: DENIES: Bruising, Lymphadenopathy Immunologic/allergic: DENIES: Eczema, Urticaria Neurologic: DENIES: Abnormal gait, Headache, Localized weakness, Paresthesias, Seizures, Speech Problems, Tremor, Poor Balance Psychiatric: COMPLAINS OF: Anxiety, Depression, Suicidal Ideation Past Psych History Psychological trauma history Unknown at this time Violence risk - others (6 mos) Low Violence risk - self (6 mos) High Substance Abuse History Drugs/Alcohol past 12 months Active alcohol abuser Past Family Social History Coded Allergies: Macrobid (Verified Allergy, Intermediate, UPSET STOMACH, 04/13/17) Penicillin (Verified Allergy, Intermediate, HIVES, 04/13/17) Past Medical History Multiple please see MedSurg Discontinued Reported Medications Multiple Vitamin 1 Tab1 Tab PO DAILY Ref 0 03/30/17 Levothyroxine 50 Mcg Tab50 Mcg PO DAILY #30 TAB Ref 0 12/02/16 Fluticasone Nasal Ulysses (Flonase Nasal Ulysses)50 Mcg/Act Spray50 Mcg EACH NARE BID #1 BOTTLE Ref 0 12/02/16 Current Medications Medications (Trade) Dose Ordered Sig/Deepak Route Start Time Stop Time Status Last Admin (Benadryl) 25 mg Q6H PRN PO 05/07/17 22:15 (Benadryl Inj) 25 mg Q6H PRN IM 05/07/17 22:15 (Tylenol) 650 mg Q4H PRN PO 05/07/17 22:15 (Milk Of Magnesia Liq) 30 ml DAILY PRN PO 05/07/17 22:15 (Mag-Al Plus Susp Liq) 30 ml Q6H PRN PO 05/07/17 22:15 (Habitrol 21 Mg Patch.24 Hr) 1 patch DAILY T-DERMAL 05/08/17 09:00 (Atarax) 25 mg Q6H PRN PO 05/07/17 22:15 05/08/17 06:24 (Romazicon Inj) 0.2 mg Q1M PRN IV PUSH 05/07/17 22:15 (Ativan) 1 mg Q4H PRN PO 05/07/17 22:15 (Ativan Inj) 1 mg Q4H PRN IV PUSH 05/07/17 22:15 (Ativan) 2 mg Q2H PRN PO 05/07/17 22:15 (Ativan Inj) 2 mg Q2H PRN IV PUSH 05/07/17 22:15 (Ativan Inj) 2 mg Q1H PRN IV PUSH 05/07/17 22:15 (Ativan Inj) 2 mg Q15M PRN IV PUSH 05/07/17 22:15 Miscellaneous Information 1 DAILY T-DERMAL 05/08/17 09:00 (Vitamin B1) 100 mg DAILY PO 05/08/17 09:00 (Folate) 1 mg DAILY PO 05/08/17 09:00 (Catapres) 0.1 mg Q6H PRN PO 05/08/17 05:30 Family History Patient and lives by herself Social History Patient was by herself as to women who are power of divorce attorney in friends of her Patient's Strengths (min. 2) Patient verbal intellect is health care has good community support Physical Exam Please see medical examination medically cleared with visit [id number] Vital Signs Vital Signs Date Time Temp Pulse Resp B/P Pulse Ox O2 Delivery O2 Flow Rate FiO2 05/08/17 06:46 97.5 80 18 122/74 96 I/O 05/07/17 05/07/17 05/08/17 08:00 16:00 00:00 Intake Total 240 ml Balance 240 ml Mental Status Examination Alert fairly well oriented thin slender female appears stated age lying quietly in her room nasal oxygen noted sitter present and nurse Iona present throughout session she is calm cooperative with fair eye contact Appearance Clean need Speech: Unremarkable Orientation: x3 Memory: Unremarkable (fair) Thought Process: Logical Thought Content: Unremarkable Language Fair Fund of Knowledge Fair Hallucination Type: None (denies) Attention and Concentration: Other (fair) Suicidal Ideation: Yes (patient significant suicide attempt) Previous Suicide Attempts: Yes (middle of April 14) Homicidal Ideation: No Previous Homicide Attempts: No Insight: Poor Judgment: Poor Affect: Other (decreased range and intensity) Mood: Sad Motor Activity: Abnormal gait-specify (patient in bed PT assessment requested) Assessment & Plan Problem List: (1) Alcohol abuse with intoxication ICD Code: F10.129 (2) Severe major depression, single episode, without psychotic features ICD Code: F32.2 Assessment & Plan Estimated LOS 3-5: days this time patient meets criteria for binge did contact the bed that At this time patient meets criteria for involuntary psychiatric hospitalization under the Escalera act I'll do first opinion request second opinion level she has capacity to sign for medications. Continue her on her meds for the med reconciliation and her Lexapro. Patient to be transferred to E. the med psych unit to be care for under Dr. Dooley's care Discharge Planning To be determined Nestor Mccoy MD May 08, 2017 09:02
[2017-05-08 11:00] VITALS: BP 124/76; PULSE 82; RESP 18; TEMP 98.3; O2SAT 97
[2017-05-08 12:35] LABS: ANION GAP 9 MEQ/L (5-15); BICARBONATE 26.6 MEQ/L (21.0-32.0); BLOOD UREA NITROGEN 13 MG/DL (7-18); CHLORIDE 103 MEQ/L (98-107); GLOMERULAR FILTRATION RATE 49 ML/MIN (>89); POTASSIUM 3.8 MEQ/L (3.5-5.1); SODIUM (NA) 139 MEQ/L (136-145)
[2017-05-08 12:37] LABS: ALT (GPT) 34 U/L (10-53); AST (GOT) 37 U/L (15-37); LDL CHOLESTEROL 119 MG/DL (0-99)
[2017-05-08 12:39] LABS: ALKALINE PHOSPHATASE 73 U/L (45-117)
--- NOTE | 2017-05-08 14:54 | PD.CONS ---
HPI Service [facility] Consult Requested By Dr. Mccoy Reason for Consult Medical management status post severe aspirin toxicity from overdose Primary Care Physician Non-Staff Diagnoses: History of Present Illness This is a 71-year-old female who was transferred from the medical floor after being treated for severe aspirin toxicity from overdose. She received emergent hemodialysis and urine alkalinization. She also developed acute respiratory failure from pulmonary edema and was intubated, acute kidney injury, hypokalemia and encephalopathy. She improved and was stabilized in the ICU managed by critical care medicine and was cleared for discharge to psychiatry floor. Consultation has been requested by her attending to evaluate and manage multiple medical conditions. Patient has no complaints at this time other than being sleepy. Denies headache, dizziness, hearing deficits, chest pain, shortness of breath, nausea, urinary complaints, numbness and focal weakness. States she has history of hypertension controlled on lisinopril, hyperlipidemia not on medicines, GERD which is asymptomatic and hepatitis C with failed treatment. All other systems reviewed negative Review of Systems Except as stated in HPI: all other systems reviewed are Neg Past Family Social History Allergies: Coded Allergies: Macrobid (Verified Allergy, Intermediate, UPSET STOMACH, 04/13/17) Penicillin (Verified Allergy, Intermediate, HIVES, 04/13/17) Past Medical History As previously mentioned Past Surgical History Denies Reported Medications Lisinopril Family History Denies heart disease Social History Drinks wine does not smoke Physical Exam Vital Signs Vital Signs Date Time Temp Pulse Resp B/P Pulse Ox O2 Delivery O2 Flow Rate FiO2 05/08/17 06:46 97.5 80 18 122/74 96 05/08/17 01:02 98.2 88 18 121/75 97 05/07/17 21:30 97.6 98 16 149/54 93 Physical Exam GENERAL: This is a well-nourished, well-developed patient, in no apparent distress. SKIN: No rashes, ecchymoses or lesions. Cool and dry. HEAD: Atraumatic. Normocephalic. No temporal or scalp tenderness. EYES: Pupils equal round and reactive. Extraocular motions intact. No scleral icterus. No injection or drainage. ENT: Nose without bleeding, purulent drainage or septal hematoma. Throat without erythema, tonsillar hypertrophy or exudate. Uvula midline. Airway patent. NECK: Trachea midline. No JVD or lymphadenopathy. Supple, nontender, no meningeal signs. CARDIOVASCULAR: Regular rate and rhythm without murmurs, gallops, or rubs. RESPIRATORY: Clear to auscultation. Breath sounds equal bilaterally. No wheezes , rales, or rhonchi. GASTROINTESTINAL: Abdomen soft, non-tender, nondistended. No guarding. MUSCULOSKELETAL: Extremities without clubbing, cyanosis, or edema. No joint tenderness, effusion, or edema noted. No calf tenderness. Negative Homans sign bilaterally. NEUROLOGICAL: Awake and alert. Cranial nerves II through XII intact. Motor and sensory grossly within normal limits. Five out of 5 muscle strength in all muscle groups. Normal speech. Laboratory Laboratory Tests Test 05/08/17 11:48 Sodium Level 139 Potassium Level 3.8 Chloride Level 103 Carbon Dioxide Level 26.6 Anion Gap 9 Blood Urea Nitrogen 13 Creatinine 1.09 Estimat Glomerular Filtration 49 Rate Random Glucose 81 Calcium Level 9.1 Phosphorus Level 1.8 Total Bilirubin 1.0 Aspartate Amino Transf 37 (AST/SGOT) Alanine Aminotransferase 34 (ALT/SGPT) Alkaline Phosphatase 73 Total Protein 7.1 Albumin 3.2 Triglycerides Level 125 Cholesterol Level 175 LDL Cholesterol 119 HDL Cholesterol 31.0 Cholesterol/HDL Ratio 5.64 Result Diagram: 05/08/17 1148 Assessment and Plan Assessment and Plan This is a 71-year-old female who was transferred from the medical floor after being treated for severe aspirin toxicity from overdose. She received emergent hemodialysis and urine alkalinization. She also developed acute respiratory failure from pulmonary edema and was intubated, acute kidney injury, hypokalemia and encephalopathy. She improved and was stabilized in the ICU managed by critical care medicine and was cleared for discharge to psychiatry floor. Consultation has been requested by her attending to evaluate and manage multiple medical conditions. Status post Salicylate toxicity -- per poison control, cleared. -- monitor clinically Acute hypoxic respiratory failure- resolved. Atelectasis Acute intravascular volume overload -- wean o2 by NC for goal spo2 > 92% -- PT, OOB --Nebs as needed Acute severe toxic encephalopathy- resolved. Lactic Acidosis- resolved. Metabolic Alkalosis- resolved. Hypophosphatemia. Replace and follow BMP and phosphorus in the morning Acute kidney injury. Nonoliguric. Avoid nephrotoxins. Repeat BMP and mag in the morning Hypertension controlled on lisinopril. BP stable off lisinopril. Will not start lisinopril secondary to acute kidney injury. Monitor with clonidine as needed Hyperlipidemia not on medicines. Check lipid profile GERD which is asymptomatic and hepatitis C with failed treatment. DVT prophylaxis with SCD and early ambulation. Discussed Condition With Patient and nursing staff Kong Myers MD May 08, 2017 14:53
[2017-05-08] MEDS: POTASSIUM PHOSPHATE MONOBASIC 500 MG TAB PO SCH ×2 (15:00→18:00)
[2017-05-08 16:07] VITALS: BP 128/74; PULSE 85; RESP 18; TEMP 98.3; O2SAT 94
[2017-05-08] MEDS ORDERED: LISI-519 PO (16:52)
[2017-05-08 18:25] LABS: HEMOGLOBIN A1a 1.1 %; HEMOGLOBIN A1b 0.7 %; HEMOGLOBIN Ao 86.1 %; HEMOGLOBIN F 1.2 %; HEMOGLOBIN LA1C 1.9 %; HEMOGLOBIN P3 3.7 %
[2017-05-08 19:18] VITALS: BP 128/64; PULSE 80; RESP 16; TEMP 97.8; O2SAT 94
[2017-05-09 06:26] VITALS: BP 121/75; PULSE 65; RESP 16; TEMP 98.2; O2SAT 96
[2017-05-09] MEDS: NICOTINE 21 MG/24 HR PATCH T-DERMAL SCH (09:00)
[2017-05-09] MEDS: REMOVE OLD PATCH T-DERMAL SCH (09:00)
--- NOTE | 2017-05-09 09:20 | HHI.PR ---
Subjective Remarks Follow-up aspirin overdose. She is asymptomatic doing okay. No voiding issues. Discussed with RN Objective Vitals Vital Signs Date Time Temp Pulse Resp B/P Pulse Ox O2 Delivery O2 Flow Rate FiO2 05/09/17 06:26 98.2 65 16 121/75 96 05/08/17 19:18 97.8 80 16 128/64 94 05/08/17 16:07 98.3 85 18 128/74 94 05/08/17 11:00 98.3 82 18 124/76 97 I/O 05/08/17 05/08/17 05/08/17 05/09/17 05/09/17 05/09/17 07:00 15:00 23:00 07:00 15:00 23:00 Intake Total 480 ml Balance 480 ml Intake Oral 480 ml # Voids 2 Result Diagram: 05/08/17 1148 Objective Remarks GENERAL: This is a well-nourished, well-developed patient, in no apparent distress. SKIN: No rashes, ecchymoses or lesions. Cool and dry. HEAD: Atraumatic. Normocephalic. No temporal or scalp tenderness. EYES: Pupils equal round and reactive. Extraocular motions intact. No scleral icterus. No injection or drainage. ENT: Nose without bleeding, purulent drainage or septal hematoma. Throat without erythema, tonsillar hypertrophy or exudate. Uvula midline. Airway patent. NECK: Trachea midline. No JVD or lymphadenopathy. Supple, nontender, no meningeal signs. CARDIOVASCULAR: Regular rate and rhythm without murmurs, gallops, or rubs. RESPIRATORY: Clear to auscultation. Breath sounds equal bilaterally. No wheezes , rales, or rhonchi. GASTROINTESTINAL: Abdomen soft, non-tender, nondistended. No guarding. MUSCULOSKELETAL: Extremities without clubbing, cyanosis, or edema. No joint tenderness, effusion, or edema noted. No calf tenderness. Negative Homans sign bilaterally. NEUROLOGICAL: Awake and alert. Cranial nerves II through XII intact. Motor and sensory grossly within normal limits. Five out of 5 muscle strength in all muscle groups. Normal speech. A/P Assessment and Plan This is a 71-year-old female who was transferred from the medical floor after being treated for severe aspirin toxicity from overdose. She received emergent hemodialysis and urine alkalinization. She also developed acute respiratory failure from pulmonary edema and was intubated, acute kidney injury, hypokalemia and encephalopathy. She improved and was stabilized in the ICU managed by critical care medicine and was cleared for discharge to psychiatry floor. Consultation has been requested by her attending to evaluate and manage multiple medical conditions. Status post Salicylate toxicity -- per poison control, cleared. -- monitor clinically Acute hypoxic respiratory failure- resolved. Atelectasis Acute intravascular volume overload -- wean o2 by NC for goal spo2 > 92% -- PT, OOB --Nebs as needed Acute severe toxic encephalopathy- resolved. Lactic Acidosis- resolved. Metabolic Alkalosis- resolved. Hypophosphatemia. Did not receive replacement yesterday. Replace and follow BMP and phosphorus in the morning Acute kidney injury. Nonoliguric. Creatinine slightly up. IV fluid for 1 L monitor for overload. Avoid nephrotoxins. Repeat BMP and mag in the morning Hypertension controlled on lisinopril. BP stable off lisinopril. Will not start lisinopril secondary to acute kidney injury. Monitor with clonidine as needed Hyperlipidemia not on medicines. LDL 113. We'll recommend Lipitor 20 mg at bedtime if patient agrees. Ten-year ASCVD risk of 15.7% % GERD which is asymptomatic and hepatitis C with failed treatment. DVT prophylaxis with SCD and early ambulation. Kong Myers MD May 09, 2017 09:20
[2017-05-09] MEDS: POTASSIUM PHOSPHATE MONOBASIC 500 MG TAB PO SCH ×3 (09:44→18:00)
[2017-05-09] MEDS: FOLIC ACID 1 MG TAB PO SCH (09:44)
[2017-05-09] MEDS: THIAMINE HCL 100 MG TAB PO SCH (09:44)
[2017-05-09 11:43] LABS: BICARBONATE 28.3 MEQ/L (21.0-32.0); MAGNESIUM 1.7 MG/DL (1.5-2.5); POTASSIUM 3.7 MEQ/L (3.5-5.1)
--- NOTE | 2017-05-09 14:02 | HHI.PYPN ---
Subjective Remarks Patient seen today for psychiatric reevaluation along with social work nurse Mary , patient reports depressive symptoms, anhedonia, guiltiness, she says that she has been thinking in her animals home and how she failed to them. Patient says that he was crazy to try to commit suicide "because I don't really want to , but I could not avoided". At this moment the patient still has suicidal thoughts, but no intentions. Patient denies homicidal ideation, she denies visual and auditory hallucinations. Patient reports poor appetite and poor sleep at night. Apply with medications, no significant side effects. Objective Alert: Yes [place]: Person, Place, Date, Situation Mood: Depressed Affect: Blunted Memory Intact: Immediate, Recent Hallucinations: Other (no hallucinations) Delusions: No Delusion Type: Other (not elicited) Suicidal: Ideation (suicidal thoughts, no plan) Homicidal: Ideation (no HI) Insight/Judgment Poor Labs Test 05/09/17 09:56 Sodium Level 141 MEQ/L Potassium Level 3.7 MEQ/L Chloride Level 105 MEQ/L Carbon Dioxide Level 28.3 MEQ/L Anion Gap 8 MEQ/L Blood Urea Nitrogen 14 MG/DL Creatinine 1.13 MG/DL Estimat Glomerular Filtration 47 ML/MIN Rate Random Glucose 79 MG/DL Calcium Level 9.9 MG/DL Phosphorus Level 2.1 MG/DL Magnesium Level 1.7 MG/DL Thyroid Stimulating Hormone 3.640 uIU/ML 3rd Gen Vitals/IOs Vital Signs Date Time Temp Pulse Resp B/P Pulse Ox O2 Delivery O2 Flow Rate FiO2 05/09/17 06:26 98.2 65 16 121/75 96 Intake and Output 05/08/17 05/08/17 05/09/17 08:00 16:00 00:00 Intake Total 480 ml Balance 480 ml Assessment & Plan Problem List: (1) Alcohol abuse with intoxication ICD Code: F10.129 (2) Severe major depression, single episode, without psychotic features Assessment & Plan: Patient continues to endorse depressive symptoms, with a recent serious suicidal attempt, still having suicidal thoughts. No withdrawal symptoms present at this moment. Endorsing insomnia and poor appetite. We'll start Remeron 50 mg for depression and to help with appetite and insomnia. ICD Code: F32.2 Assessment & Plan Estimated LOS: days Justification for Cont. Inpt. Patient has an elevated risk of suicidality, needs continue psychiatric hospitalization for stabilization and safety. Frank Ro MD May 09, 2017 14:02
[2017-05-09] MEDS ORDERED: SODIUM CHLOR 0.9% 1000 ML INJ 1,000 ML IV SCH (14:15)
[2017-05-09] MEDS ORDERED: MIRTAZAPINE 15 MG TAB PO SCH (21:00)
[2017-05-09 21:37] VITALS: BP 129/58; PULSE 84; RESP 15; TEMP 97; O2SAT 98
[2017-05-10 06:32] VITALS: BP 138/77; PULSE 75; RESP 15; TEMP 97.1; O2SAT 98
[2017-05-10 06:53] VITALS: BP 138/77; PULSE 75; RESP 15; TEMP 97.1; O2SAT 98
[2017-05-10] MEDS: FOLIC ACID 1 MG TAB PO SCH (08:54)
[2017-05-10] MEDS: POTASSIUM PHOSPHATE MONOBASIC 500 MG TAB PO SCH ×3 (08:54→17:44)
[2017-05-10] MEDS: NICOTINE 21 MG/24 HR PATCH T-DERMAL SCH (08:55)
[2017-05-10] MEDS: REMOVE OLD PATCH T-DERMAL SCH (08:55)
[2017-05-10] MEDS: THIAMINE HCL 100 MG TAB PO SCH (08:55)
--- NOTE | 2017-05-10 09:13 | HHI.PR ---
Subjective Remarks Follow-up acute kidney injury. IV fluids started last night. Patient with adequate oral intake. Denies any complaints. Discussed with RN, Medically stable and cleared for transfer to regular psychiatry floor if repeat BMP unremarkable Objective Vitals Vital Signs Date Time Temp Pulse Resp B/P Pulse Ox O2 Delivery O2 Flow Rate FiO2 05/10/17 06:53 97.1 75 15 138/77 98 05/10/17 06:32 97.1 75 15 138/77 98 05/09/17 21:37 97.0 84 15 129/58 98 I/O 05/09/17 05/09/17 05/09/17 05/10/17 05/10/17 05/10/17 06:59 14:59 22:59 06:59 14:59 22:59 Intake Total 240 ml 721 ml Balance 240 ml 721 ml Intake Oral 120 ml 721 ml Oral Supplement 120 ml # Voids 3 Result Diagram: 05/09/17 0956 Objective Remarks GENERAL: This is a well-nourished, well-developed patient, in no apparent distress. SKIN: No rashes, ecchymoses or lesions. Cool and dry. HEAD: Atraumatic. Normocephalic. No temporal or scalp tenderness. EYES: Pupils equal round and reactive. Extraocular motions intact. No scleral icterus. No injection or drainage. ENT: Nose without bleeding, purulent drainage or septal hematoma. Throat without erythema, tonsillar hypertrophy or exudate. Uvula midline. Airway patent. NECK: Trachea midline. No JVD or lymphadenopathy. Supple, nontender, no meningeal signs. CARDIOVASCULAR: Regular rate and rhythm without murmurs, gallops, or rubs. RESPIRATORY: Clear to auscultation. Breath sounds equal bilaterally. No wheezes , rales, or rhonchi. GASTROINTESTINAL: Abdomen soft, non-tender, nondistended. No guarding. MUSCULOSKELETAL: Extremities without clubbing, cyanosis, or edema. No joint tenderness, effusion, or edema noted. No calf tenderness. Negative Homans sign bilaterally. NEUROLOGICAL: Awake and alert. Cranial nerves II through XII intact. Motor and sensory grossly within normal limits. Five out of 5 muscle strength in all muscle groups. Normal speech. A/P Assessment and Plan This is a 71-year-old female who was transferred from the medical floor after being treated for severe aspirin toxicity from overdose. She received emergent hemodialysis and urine alkalinization. She also developed acute respiratory failure from pulmonary edema and was intubated, acute kidney injury, hypokalemia and encephalopathy. She improved and was stabilized in the ICU managed by critical care medicine and was cleared for discharge to psychiatry floor. Consultation has been requested by her attending to evaluate and manage multiple medical conditions. Status post Salicylate toxicity -- per poison control, cleared. -- monitor clinically Acute hypoxic respiratory failure- resolved. Atelectasis Acute intravascular volume overload -- wean o2 by NC for goal spo2 > 92% -- PT, OOB --Nebs as needed Acute severe toxic encephalopathy- resolved. Lactic Acidosis- resolved. Metabolic Alkalosis- resolved. Hypophosphatemia. Did not receive replacement yesterday. Replace and follow BMP and phosphorus in the morning Acute kidney injury. Nonoliguric. Creatinine slightly up. IV fluid for 1 L monitor for overload. Avoid nephrotoxins. Repeat BMP and mag pending Hypertension controlled on lisinopril. BP stable off lisinopril. Will not start lisinopril secondary to acute kidney injury. Monitor with clonidine as needed Hyperlipidemia not on medicines. LDL 113. We'll recommend Lipitor 20 mg at bedtime patient agrees. Ten-year ASCVD risk of 15.7% % GERD which is asymptomatic and hepatitis C with failed treatment. DVT prophylaxis with SCD and early ambulation. Kong Myers MD May 10, 2017 09:13
[2017-05-10 10:53] LABS: BICARBONATE 23.4 MEQ/L (21.0-32.0); MAGNESIUM 1.6 MG/DL (1.5-2.5); POTASSIUM 3.6 MEQ/L (3.5-5.1)
--- NOTE | 2017-05-10 13:16 | HHI.PYPN ---
Subjective Remarks On psychiatric evaluation today patient with a brighter affect, in good spirits , reports improvement in her mood, level of energy and appetite. Denies suicidal ideation, denies homicidal ideation, denies visual and auditory hallucinations. Oriented 3, complaining medications, reports no side effects. Review of Systems Other No somatic complaints Objective Alert: Yes [place]: Person, Place, Date, Situation Mood: Calm Affect: Appropriate Memory Intact: Immediate, Recent Hallucinations: Other (no hallucinations) Delusions: No Delusion Type: Other (not elicited) Suicidal: Ideation (she denies SI) Homicidal: Ideation (no HI) Insight/Judgment Improved Labs Test 05/10/17 09:09 Sodium Level 141 MEQ/L Potassium Level 3.6 MEQ/L Chloride Level 109 MEQ/L Carbon Dioxide Level 23.4 MEQ/L Anion Gap 9 MEQ/L Blood Urea Nitrogen 16 MG/DL Creatinine 1.05 MG/DL Estimat Glomerular Filtration 51 ML/MIN Rate Random Glucose 116 MG/DL Calcium Level 9.7 MG/DL Phosphorus Level 3.9 MG/DL Magnesium Level 1.6 MG/DL Vitals/IOs Vital Signs Date Time Temp Pulse Resp B/P Pulse Ox O2 Delivery O2 Flow Rate FiO2 05/10/17 06:53 97.1 75 15 138/77 98 Intake and Output 05/09/17 05/09/17 05/10/17 08:00 16:00 00:00 Intake Total 240 ml 480 ml Balance 240 ml 480 ml Assessment & Plan Problem List: (1) Alcohol abuse with intoxication ICD Code: F10.129 (2) Severe major depression, single episode, without psychotic features Assessment & Plan: Patient reports improvement in her symptomatology of depression. Will increase Remeron to 30 mg at bedtime. ICD Code: F32.2 Assessment & Plan Estimated LOS: days Justification for Cont. Inpt. Patient has an elevated risk to decompensate out of the psychiatric unit. Frank Ro MD May 10, 2017 13:15
[2017-05-10 17:57] VITALS: BP 134/90; PULSE 73; RESP 16; TEMP 97.9; O2SAT 99
[2017-05-10] MEDS ORDERED: MIRTAZAPINE 15 MG TAB PO SCH (21:00)
[2017-05-11 06:13] VITALS: BP 122/64; PULSE 75; RESP 15; TEMP 97.4; O2SAT 85
[2017-05-11] MEDS: NICOTINE 21 MG/24 HR PATCH T-DERMAL SCH (09:00)
[2017-05-11] MEDS: REMOVE OLD PATCH T-DERMAL SCH (09:00)
[2017-05-11] MEDS: FOLIC ACID 1 MG TAB PO SCH (09:51)
[2017-05-11] MEDS: POTASSIUM PHOSPHATE MONOBASIC 500 MG TAB PO SCH ×2 (09:52→13:00)
[2017-05-11] MEDS: THIAMINE HCL 100 MG TAB PO SCH (09:52)
--- NOTE | 2017-05-11 10:08 | HHI.PR ---
Subjective Remarks Follow-up acute kidney injury. She has no complaints tolerating meals. She is voiding. Discussed with RN Objective Vitals Vital Signs Date Time Temp Pulse Resp B/P Pulse Ox O2 Delivery O2 Flow Rate FiO2 05/11/17 06:13 97.4 75 15 122/64 85 05/10/17 17:57 97.9 73 16 134/90 99 I/O 05/10/17 05/10/17 05/10/17 05/11/17 05/11/17 05/11/17 07:00 15:00 23:00 07:00 15:00 23:00 Intake Total 721 ml 600 ml 1560 ml 240 ml 360 ml Balance 721 ml 600 ml 1560 ml 240 ml 360 ml Intake Oral 721 ml 600 ml 1560 ml 240 ml 360 ml # Voids 3 3 2 Result Diagram: 05/10/17 0909 Objective Remarks GENERAL: This is a well-nourished, well-developed patient, in no apparent distress. SKIN: No rashes, ecchymoses or lesions. Cool and dry. HEAD: Atraumatic. Normocephalic. No temporal or scalp tenderness. EYES: Pupils equal round and reactive. Extraocular motions intact. No scleral icterus. No injection or drainage. ENT: Nose without bleeding, purulent drainage or septal hematoma. Throat without erythema, tonsillar hypertrophy or exudate. Uvula midline. NECK: Trachea midline. No JVD or lymphadenopathy. Supple, nontender, no meningeal signs. CARDIOVASCULAR: Regular rate and rhythm without murmurs, gallops, or rubs. RESPIRATORY: Clear to auscultation. Breath sounds equal bilaterally. No wheezes , rales, or rhonchi. GASTROINTESTINAL: Abdomen soft, non-tender, nondistended. No guarding. MUSCULOSKELETAL: Extremities without clubbing, cyanosis, or edema. No joint tenderness, effusion, or edema noted. No calf tenderness. Negative Homans sign bilaterally. NEUROLOGICAL: Awake and alert. Cranial nerves II through XII intact. Motor and sensory grossly within normal limits. Five out of 5 muscle strength in all muscle groups. Normal speech. A/P Assessment and Plan This is a 71-year-old female who was transferred from the medical floor after being treated for severe aspirin toxicity from overdose. She received emergent hemodialysis and urine alkalinization. She also developed acute respiratory failure from pulmonary edema and was intubated, acute kidney injury, hypokalemia and encephalopathy. She improved and was stabilized in the ICU managed by critical care medicine and was cleared for discharge to psychiatry floor. Consultation has been requested by her attending to evaluate and manage multiple medical conditions. Status post Salicylate toxicity -- per poison control, cleared. -- monitor clinically Acute hypoxic respiratory failure- resolved. Atelectasis Acute intravascular volume overload -- wean o2 by NC for goal spo2 > 92% -- PT, OOB --Nebs as needed Acute severe toxic encephalopathy- resolved. Lactic Acidosis- resolved. Metabolic Alkalosis- resolved. Hypophosphatemia. Did not receive replacement yesterday. Replace and follow BMP and phosphorus in the morning Acute kidney injury. Nonoliguric. Improving status post IV fluid. Avoid nephrotoxins. Repeat BMP and mag tomorrow Hypertension controlled on lisinopril. BP stable off lisinopril. Will not start lisinopril secondary to acute kidney injury. Monitor with clonidine as needed Hyperlipidemia not on medicines. LDL 113. We'll recommend Lipitor 20 mg at bedtime Ten-year ASCVD risk of 15.7% % GERD which is asymptomatic and hepatitis C with failed treatment. DVT prophylaxis with SCD and early ambulation. Kong Myers MD May 11, 2017 10:08
[2017-05-11] MEDS ORDERED: MIRTA15 PO (12:10)
--- NOTE | 2017-05-11 12:15 | HHI.DS ---
Psychiatry Discharge Summary Inpatient Psychiatric care?: Yes Advance Directive: Yes Mental Health AdvanceDirective: No Health Care Proxy: Yes Name and Phone Number: Rachel Linn [phone] Admission Admission Date May 07, 2017 at 21:35 Admission Diagnosis: (1) Severe major depression, single episode, without psychotic features ICD Code: F32.2 Brief History Patient is 71-year-old white female initially admitted to [facility] on to 05/07/17 under visit [id number] for salicylate overdose suicide attempt labs drawn on showed blood alcohol level of 99 negative toxicology but a salicylate level of 112.6 since starting hemodialysis patient seen by me in consultation on 05/05/17 recommended transient of the psychiatric unit when medically clear and stable it appears yesterday she was cleared from the intensive care unit from medical floor she was transferred down here in its stead. Of interest patient also seen in our ED on 03/30/17 under visit [id number] at that visit to the ED patient's blood alcohol level was 163. She was treated and discharged home. Towards the middle of March patient was seen at [facility] and transferred to the [facility] after an overdose she was released from the [facility] but appears to be 01 May. Patient did state alcohol use to 01 May and when she was admitted here on 05/04/17. At the present time patient laying quietly in her bed on 2500 continues nasal oxygen noted to his recent chest x-ray showing some pulmonary edema. Our [facility] unit is open to this morning patient is to be transferred to that unit for more intensive medical care along with her mental health care. In any event at the present time patient is somewhat vague about her suicidality. It appears she is financially well off this [place] [address] and has nurse animals she cares for her including horses dogs and cats. It appears this is becoming more and more overwhelming for her. Related to the depression and loneliness in the suicide attempts along with the significant alcohol use. I did start her on Lexapro after consultation on 05/05. In any event at this time patient continues to meet criteria for involuntary psychiatric hospitalization I will do first opinion requests second opinion. Patient be transferred to [facility] and transferred to Dr. Dooley's service at that point in time Tobacco Use In Past 30 Days: No Tobacco Past 30 Days Alcohol Use: Never Hospital Course Patient arrived to the med psych unit from regular psych. Appropriate safety measure were taken. At the beginning patient depressed, confused, labile. She wasn't started in appropriate group and individual therapies. Was to start taking Remeron 15 mg, that was posterior is visibly increased to 30 mg. Patient showed good response to psychotropics and psychotherapist. At this moment patient is in her lowest identify risk of suicidality. No concerning safety issues. She will be discharged back home. Results Blood Pressure 122 / 64 Vital Signs Date Time Temp Pulse Resp B/P Pulse Ox O2 Delivery O2 Flow Rate FiO2 05/11/17 06:13 97.4 75 15 122/64 85 Laboratory Tests Test 05/09/17 05/10/17 09:56 09:09 Creatinine 1.13 MG/DL 1.05 MG/DL (0.50-1.00) (0.50-1.00) Estimat Glomerular Filtration 47 ML/MIN (>89) 51 ML/MIN (>89) Rate Phosphorus Level 2.1 MG/DL (2.5-4.9) Chloride Level 109 MEQ/L (98-107) Random Glucose 116 MG/DL (74-106) Laboratory Results Test 05/08/17 11:48 Hemoglobin A1c 5.1 % (4.3-6.0) Triglycerides Level 125 MG/DL (42-150) Cholesterol Level 175 MG/DL (120-200) LDL Cholesterol 119 MG/DL (0-99) HDL Cholesterol 31.0 MG/DL (40.0-60.0) Summary of Procedures No procedures done Pending results at discharge: No Medications # of Antipsychotic meds at D/C: 0 Approp Antipsych med options 1 - Minimum of three failed multiple trials of monotherapy. 2 - Documented plan to taper to monotherapy due to previous use of multiple meds OR cross-taper in progress at D/C. 3 - Documentation of augmentation of Clozapine. 4 - Justification other than those listed in allowable values 1-3, document here : Discharge Discharge Date: May 11, 2017 Discharge Diagnosis: (1) Severe major depression, single episode, without psychotic features ICD Code: F32.2 Mental Status Exam at Disch woman, she skinny, age appearing, good hygiene, [facility], calm , cooperative and pleasant. Speech is fluent and spontaneous. Her mood is euthymic, her affect appropriate, her thought process is logical, coherent and relevant, thought content is devoid of suicidal or homicidal ideation, visual and auditory hallucinations. No paranoia, no delusions. Insight, impulse control and judgment are good. Memory is intact. Pt Condition on Discharge: Stable Discharge Disposition: Discharge Home Discharge Instructions Diet Instructions: As Tolerated, No Restrictions Activities you can perform: Regular-No Restrictions Scheduled Appointment: Discharge Time > 30 minutes Discharge/Advance Care Plan Health Problems: (1) Alcohol abuse with intoxication (2) Severe major depression, single episode, without psychotic features Goals to promote your health * To prevent worsening of your condition and complications * To maintain your health at the optimal level Directions to meet your goals Take your medications as prescribed Follow your dietary instruction Follow activity as directed Keep your appointments as scheduled Take your immunizations and boosters as scheduled If your symptoms worsen call your PCP, if no PCP go to Urgent Care Center or Emergency Room For 21/05 questions related to your inpatient stay or results of tests pending at discharge, please contact Dr. Frank Ro at Smoking is Dangerous to Your Health. Avoid second hand smoking Frank Ro MD May 11, 2017 12:15
== END 2017-05-11 13:15 | disposition home or self-care (01) | DRG 885 ==
LOC: H250 21:35 → H4EA 05-08 15:50
PROVIDERS: ADMIT Psychiatry & Neurology Psychiatry; ATTEND Psychiatry & Neurology Psychiatry
DX: F32.2 Major depressive disorder, single episode, severe without psychotic features (principal); N17.9 Acute kidney failure, unspecified; E87.70 Fluid overload, unspecified; R45.851 Suicidal ideations; E83.39 Other disorders of phosphorus metabolism; I10 Essential (primary) hypertension; F10.10 Alcohol abuse, uncomplicated; E78.5 Hyperlipidemia, unspecified; K21.9 Gastro-esophageal reflux disease without esophagitis; B19.20 Unspecified viral hepatitis C without hepatic coma; G47.00 Insomnia, unspecified; Z91.5 Personal history of self-harm
CPT/HCPCS: 76937; 80048; 80053; 80061; 82550; 83036; 83735; 84100; 84443; J7030